=== PATIENT | female | born 1935 | race Caucasian/White ===

== ENCOUNTER 2016-10-04 10:45 | Emergency (ER) | payer MEDICARE, OTHER ==
[2016-10-04] MEDS ORDERED: Sodium Chloride 0.9% 10 ML Syringe FLUSH PRN (12:25)
[2016-10-04] MEDS ORDERED: Ertapenem 1 GM in Sodium Chloride 0.9% 100 ML IV ONE (12:25)
--- NOTE | 2016-10-04 12:44 | EDM.PDOC ---
ED HPI RENAL/ - General Chief Complaint: Genitourinary Problem Stated Complaint: NEEDS IV Time Seen by Provider: 10/04/16 12:15 Source: Reports: Patient, Family, RN notes reviewed History Limitations: Reports: No limitations - History of Present Illness INITIAL COMMENTS - FREE TEXT/NARRATIVE: 81-year-old female presents emergency department today sent from clinic for need for antibiotics, she was recently evaluated in the clinic on September 30 urinalysis at that time was consistent with urinary tract infection she does have a known history of recurrent urinary tract infections sensitivity and culture did come back on October 03 the culture grew out Escherichia coli unfortunately it is resistant to ampicillin, cephalosporins extended spectrum, ciprofloxacin and is sensitive to nitrofurantoin and sensitive ampicillin sensitive resistant to tetracycline and resistant to Bactrim. She does not complain of any specific urinary symptoms she states she has had fevers at home and generally feeling poor as it is ongoing for the last week or so - Related Data Allergies/ADRs: Allergies Allergy/AdvReac Type Severity Reaction Status Date / Time adhesive Allergy Blisters Verified 10/04/16 11:38 cephalexin monohydrate Allergy Diarrhea Verified 10/04/16 11:38 [From Keflex] ciprofloxacin [From Cipro] Allergy Hives Verified 10/04/16 11:38 ciprofloxacin HCl Allergy Hives Verified 10/04/16 11:38 [From Cipro] Penicillins Allergy Hives Verified 10/04/16 11:38 tetracycline [Tetracycline] Allergy Hives Verified 10/04/16 11:38 Home Meds: Home Meds Acetaminophen [Tylenol Extra Strength] 1,000 mg PO Q6H PRN 05/30/14 [History] Albuterol Sulfate [Proair Hfa] 2 puff IH QID PRN 05/30/14 [History] Aspirin [Ecotrin] 81 mg PO DAILY 05/30/14 [History] Cholecalciferol (Vitamin D3) [Vitamin D] 2,000 unit PO DAILY 05/30/14 [History] Gabapentin [Neurontin] 600 mg PO BID 05/30/14 [History] Insulin Detemir [Levemir Flexpen] 21 units SQ BEDTIME 05/30/14 [History] Lansoprazole [Prevacid] 30 mg PO DAILY 05/30/14 [History] Multivitamin [Multi Vitamin Daily] 1 tab PO DAILY 05/30/14 [History] Sertraline [Zoloft] 50 mg PO TID 05/30/14 [History] amLODIPine [Norvasc] 5 mg PO DAILY 05/30/14 [History] atorvaSTATin [Lipitor] 40 mg PO DAILY 05/30/14 [History] fentaNYL [Duragesic] 50 mcg TRDERM Q72H 05/30/14 [History] oxyCODONE 5 mg PO Q4H PRN 05/30/14 [History] tiZANidine [Zanaflex] 4 mg PO TID PRN 05/30/14 [History] Gabapentin [Neurontin] 900 mg PO BEDTIME 01/05/16 [History] Insulin Aspart [Novolog Flexpen] 3 unit SQ BID 01/05/16 [History] Metoprolol Tartrate 1 tab PO DAILY 08/06/16 [History] Past Medical History HEENT History: Reports: Cataract, Other (see below) Other HEENT History: mastiodectomy Cardiovascular History: Reports: Arrhythmia, High cholesterol, Hypertension Respiratory History: Reports: SOB Gastrointestinal History: Reports: Gastritis Genitourinary History: Reports: Chronic renal insuffiency, Other (see below) Other Genitourinary History: stage 3 kidney disease 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: Musculoskeletal History: Reports: Arthritis, Back pain, chronic, Fracture, Fibromyalgia, Osteoarthritis Other Musculoskeletal History: left tibia fx last year Neurological History: Reports: Neuropathy, diabetic, Neuropathy, peripheral Psychiatric History: Reports: Depression Endocrine/Metabolic History: Reports: Diabetes, type II, Osteoporosis Hematologic History: Reports: Blood transfusion(s) Oncologic (Cancer) History: Reports: Squamous cell carcinoma Dermatologic History: Reports: Melanoma - Infectious Disease History Infectious Disease History: Reports: Chicken pox, Measles, Mumps - Past Surgical History HEENT Surgical History: Reports: Tonsillectomy GI Surgical History: Reports: Cholecystectomy, Hernia, abdominal, Hernia repair/ other Female Surgical History: Reports: Hysterectomy Neurological Surgical History: Reports: Laminectomy, Spinal fusion, Other (see below) Other Neurological Surgeries/Procedures: 2 failed back surgeries Musculoskeletal Surgical History: Reports: Hip replacement, Knee replacement, Other (see below) Other Musculoskeletal Surgeries/Procedures:: tumor removed from ankle Oncologic Surgical History: Reports: Other (see below) Other Oncologic Surgeries/Procedures: lesions removed on ankle and nose Social & Family History - Tobacco Use Smoking Status *Q: Never Smoker Second Hand Smoke Exposure: No - Caffeine Use Caffeine Use: Reports: None - Alcohol Use Days Per Week of Alcohol Use: 0 - Recreational Drug Use Recreational Drug Use: No ED ROS GENERAL - Review of Systems Review Of Systems: See Below Constitutional: Reports: fever. Denies: chills HEENT: Reports: No symptoms Respiratory: Reports: no symptoms Cardiovascular: Reports: No symptoms GI/Abdominal: Reports: No symptoms : Reports: no symptoms ED EXAM, RENAL/ - Physical Exam Exam: See Below Exam Limited By: No limitations General Appearance: alert, WD/WN, no apparent distress Respiratory/Chest: lungs clear, normal breath sounds Cardiovascular: regular rate, rhythm, no murmur Course - Vital Signs Last Recorded V/S: Last Vital Signs Temp 99.5 F 10/04/16 11:53 Pulse 80 10/04/16 11:53 Resp 14 10/04/16 11:53 BP 158/70 H 10/04/16 11:53 Pulse Ox 94 L 10/04/16 11:53 - Orders/Labs/Meds Orders: Active Orders 24 hr Category Date Time Status Peripheral IV Care [RC] . DIRECTED Care 10/04/16 12:25 Ordered Ertapenem [INVanz] 1 gm Med 10/04/16 12:25 Ordered Sodium Chloride 0.9% [Normal Saline] 100 ml IV ONETIME Sodium Chloride 0.9% [Saline Flush] Med 10/04/16 12:25 Ordered 10 ml FLUSH ASDIRECTED PRN Peripheral IV Insertion Adult [OM.PC] Urgent Oth 10/04/16 12:25 Ordered Medication Orders Ertapenem 1 gm/ Sodium (Chloride) 100 mls @ 200 mls/hr IV ONETIME ONE Stop: 10/04/16 12:54 Sodium Chloride (Saline Flush) 10 ml FLUSH ASDIRECTED PRN PRN Reason: Keep Vein Open Meds: Medications Generic Name Dose Route Start Last Admin Trade Name Freq PRN Reason Stop Dose Admin Ertapenem 1 gm/ Sodium 100 mls @ 200 mls/hr 10/04/16 12:25 Chloride IV 10/04/16 12:54 ONETIME ONE Sodium Chloride 10 ml 10/04/16 12:25 Saline Flush FLUSH ASDIRECTED PRN Keep Vein Open Departure - Departure Time of Disposition: 12:43 Disposition: Home, Self-Care 01 Condition: good Clinical Impression: UTI, Urinary tract infectious disease Forms: ED Department Discharge Additional Instructions: Please followup with the acute care unit daily for IV antibiotics, call or return to the ED with worsening of symptoms - My Orders Last 24 Hours: My Active Orders 10/04/16 12:25 Peripheral IV Care [RC] . DIRECTED Ertapenem [INVanz] 1 gm Sodium Chloride 0.9% [Normal Saline] 100 ml IV ONETIME Sodium Chloride 0.9% [Saline Flush] 10 ml FLUSH ASDIRECTED PRN Peripheral IV Insertion Adult [OM.PC] Urgent - Assessment/Plan Last 24 Hours: My Active Orders 10/04/16 12:25 Peripheral IV Care [RC] . DIRECTED Ertapenem [INVanz] 1 gm Sodium Chloride 0.9% [Normal Saline] 100 ml IV ONETIME Sodium Chloride 0.9% [Saline Flush] 10 ml FLUSH ASDIRECTED PRN Peripheral IV Insertion Adult [OM.PC] Urgent Plan: Assessment Acuity = acute Site and laterality = complicated urinary tract infection Etiology = Escherichia coli multiple resistance Manifestations = fevers Location of injury = home Lab values = none Plan After consultation with pharmacy elected to start Invanz 1 g daily for 10 days she will receive that antibiotic to the acute care unit or through the emergency department depending on the day Patient was in agreement with the plan all questions were answered, they were instructed to return to the emergency department or call for worsening symptoms. This note was dictated using [employer] voice recognition software please call with any questions.
[2016-10-04 13:21] VITALS: BP 156/68
== END 2016-10-04 13:38 | disposition home or self-care (01) ==
LOC: JP.ED 10:45
DX: N39.0 Urinary tract infection, site not specified (principal); E78.00 Pure hypercholesterolemia, unspecified; N18.3 Chronic kidney disease, stage 3 (moderate); I12.9 Hypertensive chronic kidney disease with stage 1 through stage 4 chronic kidney disease, or unspecified chronic kidney disease; E11.40 Type 2 diabetes mellitus with diabetic neuropathy, unspecified; Z90.49 Acquired absence of other specified parts of digestive tract; Z90.710 Acquired absence of both cervix and uterus; Z98.1 Arthrodesis status; Z96.659 Presence of unspecified artificial knee joint; Z96.649 Presence of unspecified artificial hip joint; Z98.890 Other specified postprocedural states; Z79.4 Long term (current) use of insulin; Z79.82 Long term (current) use of aspirin; Z79.899 Other long term (current) drug therapy; Z88.0 Allergy status to penicillin; Z88.1 Allergy status to other antibiotic agents; Z91.048 Other nonmedicinal substance allergy status
CPT/HCPCS: 96365; 99284; J1335; J7030; J7050; 99283

== ENCOUNTER 2017-03-03 07:25 | Emergency (ER) | payer MEDICARE, OTHER ==
[2017-03-03] MEDS ORDERED: Sodium Chloride 0.9% 1,000 ML IV SCH (08:30)
--- NOTE | 2017-03-03 09:10 | EDM.PDOC ---
[id number] Complaint: VOMITING Time Seen by Provider: 03/03/17 08:35 Source of Information: Reports: Patient, Family History Limitations: Reports: No Limitations - History of Present Illness INITIAL COMMENTS - FREE TEXT/NARRATIVE: 81-year-old female has had persistent nausea and vomiting for the past 4-7 days , a near syncopal episode 2 days ago, and mild upper abdominal discomfort. She was treated with Bactrim DS for a UTI which she finished 4 days ago but symptoms started 3-4 days prior to finishing the antibiotic. Denies fevers or chills, overnight she had persistent dry heaves so her daughter started worrying she was getting dehydrated and brought her in. No diarrhea, no shortness of breath, no fevers or chills. She denies any urinary tract symptoms at this time. Duration: Day(s): (7-10 days) Severity: Moderate Associated Symptoms: Reports: Diaphoresis, Nausea/Vomiting, Syncope (Near syncope 2 days ago). Denies: Fever/Chills, Headaches Abdomen Pain Score (Numeric/FACES): 5 - Related Data Allergies Allergy/AdvReac Type Severity Reaction Status Date / Time adhesive Allergy Blisters Verified 03/03/17 07:53 cephalexin monohydrate Allergy Diarrhea Verified 03/03/17 07:53 [From Keflex] ciprofloxacin [From Cipro] Allergy Hives Verified 03/03/17 07:53 ciprofloxacin HCl Allergy Hives Verified 03/03/17 07:53 [From Cipro] Penicillins Allergy Hives Verified 03/03/17 07:53 tetracycline [Tetracycline] Allergy Hives Verified 03/03/17 07:53 Home Meds: Home Meds Acetaminophen [Tylenol Extra Strength] 1,000 mg PO Q6H PRN 05/30/14 [History] Albuterol Sulfate [Proair Hfa] 2 puff IH QID PRN 05/30/14 [History] Aspirin [Ecotrin] 81 mg PO DAILY 05/30/14 [History] Cholecalciferol (Vitamin D3) [Vitamin D] 2,000 unit PO DAILY 05/30/14 [History] Gabapentin [Neurontin] 600 mg PO BID 05/30/14 [History] Insulin Detemir [Levemir Flexpen] 24 units SQ BEDTIME 05/30/14 [History] Lansoprazole [Prevacid] 30 mg PO DAILY 05/30/14 [History] Multivitamin [Multi Vitamin Daily] 1 tab PO DAILY 05/30/14 [History] Sertraline [Zoloft] 50 mg PO TID 05/30/14 [History] amLODIPine [Norvasc] 5 mg PO DAILY 05/30/14 [History] atorvaSTATin [Lipitor] 40 mg PO DAILY 05/30/14 [History] fentaNYL [Duragesic] 50 mcg TRDERM Q72H 05/30/14 [History] oxyCODONE 5 mg PO Q4H PRN 05/30/14 [History] tiZANidine [Zanaflex] 4 mg PO TID PRN 05/30/14 [History] Gabapentin [Neurontin] 900 mg PO BEDTIME 01/05/16 [History] Insulin Aspart [Novolog Flexpen] 4 unit SQ BID 01/05/16 [History] Metoprolol Tartrate 1 tab PO DAILY 08/06/16 [History] Loratadine 10 mg PO DAILY 10/06/16 [History] Past Medical History HEENT History: Reports: Cataract, Other (See Below) Other HEENT History: mastiodectomy Cardiovascular History: Reports: Arrhythmia, High Cholesterol, Hypertension Respiratory History: Reports: SOB Gastrointestinal History: Reports: Gastritis Genitourinary History: Reports: Chronic Renal Insuffiency, Other (See Below) Other Genitourinary History: recent UTI 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: Musculoskeletal History: Reports: Arthritis, Back Pain, Chronic, Fracture, Fibromyalgia, Osteoarthritis Other Musculoskeletal History: left tibia fx last year Neurological History: Reports: Neuropathy, Diabetic, Neuropathy, Peripheral Psychiatric History: Reports: Depression Endocrine/Metabolic History: Reports: Diabetes, Type II, Osteoporosis Hematologic History: Reports: Blood Transfusion(s) Oncologic (Cancer) History: Reports: Squamous Cell Carcinoma Dermatologic History: Reports: Melanoma - Infectious Disease History Infectious Disease History: Reports: Chicken Pox, Measles, Mumps - Past Surgical History GI Surgical History: Reports: Cholecystectomy, Hernia, Abdominal, Hernia Repair/ Other Neurological Surgical History: Reports: Laminectomy, Spinal Fusion, Other (See Below) Musculoskeletal Surgical History: Reports: Hip Replacement, Knee Replacement, Other (See Below) Oncologic Surgical History: Reports: Other (See Below) Social & Family History - Tobacco Use Smoking Status *Q: Never Smoker Second Hand Smoke Exposure: No - Caffeine Use Caffeine Use: Reports: None - Alcohol Use Days Per Week of Alcohol Use: 0 - Recreational Drug Use Recreational Drug Use: No ED ROS GENERAL - Review of Systems Review Of Systems: See Below Constitutional: Reports: Malaise, Weakness, Decreased Appetite. Denies: Fever, Chills HEENT: Reports: No Symptoms Respiratory: Denies: Shortness of Breath, Cough Cardiovascular: Denies: Chest Pain Endocrine: Reports: Fatigue GI/Abdominal: Reports: Nausea, Vomiting. Denies: Constipation, Diarrhea : Reports: Other (Treated for a recent UTI but no current symptoms) Skin: Denies: Rash Neurological: Denies: Headache ED EXAM, GI/ABD - Physical Exam Exam: See Below Exam Limited By: No Limitations General Appearance: Alert, No Apparent Distress Eyes: Bilateral: Normal Appearance (No jaundice) Respiratory/Chest: No Respiratory Distress, Lungs Clear Cardiovascular: Regular Rate, Rhythm. No: Tachycardia GI/Abdominal Exam: Normal Bowel Sounds, Soft, Non-Tender Extremities: No: Pedal Edema Neurological: Alert, Oriented, No Motor/Sensory Deficits Psychiatric: Normal Affect, Normal Mood Skin Exam: Warm, Dry Course - Vital Signs Last Recorded V/S: Last Vital Signs Temp 96.8 F 03/03/17 10:12 Pulse 77 03/03/17 10:12 Resp 16 03/03/17 10:12 BP 154/73 H 03/03/17 10:12 Pulse Ox 94 L 03/03/17 10:12 - Orders/Labs/Meds Labs: Laboratory Tests 03/03/17 03/03/17 03/03/17 Range/Units 08:36 08:36 08:46 WBC 5.7 (4.5-11.0) K/uL RBC 5.45 (3.30-5.50) M/uL Hgb 15.8 H (12.0-15.0) g/dL Hct 46.3 (36.0-48.0) % MCV 85 (80-98) fL MCH 29 (27-31) pg MCHC 34 (32-36) % Plt Count 248 (150-400) K/uL Neut % (Auto) 55 (36-66) % Lymph % (Auto) 36 (24-44) % [place]ke % (Auto) 6 (2-6) % Eos % (Auto) 2 (2-4) % Baso % (Auto) 1 (0-1) % Sodium 140 (140-148) mmol/L Potassium 3.9 (3.6-5.2) mmol/L Chloride 102 (100-108) mmol/L Carbon Dioxide 31 (21-32) mmol/L Anion Gap 7.3 (5.0-14.0) mmol/L BUN 21 H (7-18) mg/dL Creatinine 1.4 H (0.6-1.0) mg/dL Est Cr Clr Drug Dosing 24.93 mL/min Estimated GFR (MDRD) 36 L (>60) Glucose 218 H (74-106) mg/dL Calcium 10.3 H (8.5-10.1) mg/dL Total Bilirubin 0.5 (0.2-1.0) mg/dL AST 41 H (15-37) U/L ALT 36 (12-78) U/L Alkaline Phosphatase 117 H (46-116) U/L Troponin I < 0.017 (0.000-0.056) ng/mL Total Protein 9.6 H (6.4-8.2) g/dL Albumin 4.3 (3.4-5.0) g/dL Globulin 5.3 H (2.3-3.5) g/dL Albumin/Globulin Ratio 0.8 L (1.2-2.2) Amylase 41 (25-115) U/L Lipase 122 (73-393) U/L Urine Color Yellow Urine Appearance Clear Urine pH 6.5 (4.5-8.0) Ur Specific [place] 1.010 (1.008-1.030) Urine Protein 500 H (NEGATIVE) mg/dL Urine Glucose (UA) Normal (NEGATIVE) mg/dL Urine Ketones Negative (NEGATIVE) mg/dL Urine Occult Blood Moderate (NEGATIVE) Urine Nitrite Negative (NEGATIVE) Urine Bilirubin Negative (NEGATIVE) Urine Urobilinogen Normal (NORMAL) mg/dL Ur Leukocyte Esterase Negative (NEGATIVE) Urine RBC 0-5 (0-5) Urine WBC Not seen (0-5) Ur Epithelial Cells Not seen Amorphous Sediment Few Urine Bacteria Not seen Urine Mucus Not seen Meds: Medications Discontinued Medications Generic Name Dose Route Start Last Admin Trade Name Freq PRN Reason Stop Dose Admin Sodium Chloride 1,000 mls @ 1,000 mls/hr 03/03/17 08:30 03/03/17 08:45 Normal Saline IV 1,000 mls/hr ASDIRECTED OBDULIA Administration Ondansetron HCl 4 mg 03/03/17 09:27 03/03/17 09:32 Zofran IVPUSH 03/03/17 09:28 4 mg ONETIME ONE Administration - Re-Assessments/Exams Free Text/Narrative Re-Assessment/Exam: 03/03/17 09:00 Patient will be hydrated with 1 L of normal saline, a catheter specimen UA was obtained and also a CBC, CMP, amylase and lipase. A troponin will also be drawn 03/03/17 09:55 Patient was given 4 mg of IV Zofran and a liter of fluid and felt better. Labs were reassuring, the catheter UA was negative other than a small amount of proteinuria. She was discharged with 5 additional doses of sublingual Zofran and will return if not improving satisfactorily. Departure - Departure Time of Disposition: 10:15 Disposition: Home, Self-Care 01 Condition: Good Clinical Impression: Nausea and vomiting in adult, Dehydration - Discharge Information Instructions: Dehydration, Adult, [id number] Referrals: Adela Dietz NP [Primary Care Provider] - Forms: ED Department Discharge Care Plan Goals: Advance fluids and diet as tolerated. Use Zofran as needed for nausea and vomiting if it develops and return anytime if worsening or concerns. Consider recheck in 3-4 days if not improving satisfactorily.
[2017-03-03] MEDS ORDERED: Ondansetron 4 MG/2 ML SDV IVPUSH ONE (09:27)
[2017-03-03 10:13] VITALS: BP 154/73
== END 2017-03-03 10:15 | disposition home or self-care (01) ==
LOC: JP.ED 07:25
DX: E86.0 Dehydration (principal); I12.9 Hypertensive chronic kidney disease with stage 1 through stage 4 chronic kidney disease, or unspecified chronic kidney disease; N18.9 Chronic kidney disease, unspecified; E11.42 Type 2 diabetes mellitus with diabetic polyneuropathy; E78.00 Pure hypercholesterolemia, unspecified; M19.90 Unspecified osteoarthritis, unspecified site; F32.9 Major depressive disorder, single episode, unspecified; Z85.828 Personal history of other malignant neoplasm of skin; Z90.49 Acquired absence of other specified parts of digestive tract; Z98.890 Other specified postprocedural states; Z96.659 Presence of unspecified artificial knee joint; Z96.649 Presence of unspecified artificial hip joint; Z79.82 Long term (current) use of aspirin; Z79.4 Long term (current) use of insulin; Z79.899 Other long term (current) drug therapy; Z87.440 Personal history of urinary (tract) infections; Z88.0 Allergy status to penicillin; Z88.1 Allergy status to other antibiotic agents; Z88.8 Allergy status to other drugs, medicaments and biological substances
CPT/HCPCS: 36415; 80053; 81001; 82150; 83690; 84484; 85025; 96361; 96374; 99284; J2405; J7040; 99283

== ENCOUNTER 2017-08-15 07:35 | Day surgery (SDC) | payer MEDICARE, BC ==
[2017-08-15] MEDS ORDERED: fentaNYL 100 MCG/2 ML SDV ONE (08:36)
[2017-08-15] MEDS ORDERED: Propofol 200 MG/20 ML SDV ONE (08:36)
[2017-08-15] MEDS ORDERED: Lactated Ringers 1,000 ML IV SCH (08:45)
[2017-08-15 11:04] VITALS: BP 179/89
--- NOTE | 2017-08-16 08:15 | OR ---
DATE OF PROCEDURE: 08/15/2017 PREOPERATIVE DIAGNOSIS: Nausea, gastroesophageal reflux disease. POSTOPERATIVE DIAGNOSIS: 4 cm hiatal hernia, gastroesophageal reflux disease, mild gastritis, nausea. PROCEDURES: Esophagogastroduodenoscopy with biopsy of gastroesophageal junction. Biopsy of stomach for CLOtest and for pathology to look for Helicobacter pylori. ANESTHESIA: IV anesthesia with monitored anesthesia care. INDICATION: This 81-year-old white female is referred for upper endoscopy because of nausea and reflux. She has never had this study done. I counseled her for the procedure including risks and alternatives, and she gave her informed consent to proceed. DESCRIPTION OF PROCEDURE: The patient was placed in the left lateral decubitus position. IV anesthesia was administered by the Anesthesia Service. Time-out was held. The flexible video Olympus upper endoscope was passed through her mouth, down her esophagus, and into her stomach. The scope was easily passed through the pylorus into the duodenal region and its 3rd portion. The scope was then slowly withdrawn examining the mucosa throughout. The duodenal mucosa appeared unremarkable. The scope was brought back up through the pylorus into the antrum. The antrum had a fine erythema suggestive of mild gastritis. The scope was retroflexed. The proximal stomach had a fine erythema also. The scope was straightened. We obtained gastric biopsies for CLOtest and for pathology to look for Helicobacter pylori. The scope was brought up through the GE junction. There was about a 4 cm hiatal hernia present. The Z-line was not straight consistent with gastroesophageal reflux disease. We obtained multiple, totalling 6 biopsies of the gastroesophageal junction. The scope was then brought proximally through the remainder of the esophagus, which otherwise appeared unremarkable and it was removed. She tolerated the procedure well. Graham Gipson MD /[id number]
== END 2017-08-15 10:40 | disposition home or self-care (01) ==
LOC: JP.SDS 07:35
PROVIDERS: ATTEND Surgery
DX: K21.0 Gastro-esophageal reflux disease with esophagitis (principal); K44.9 Diaphragmatic hernia without obstruction or gangrene; E11.22 Type 2 diabetes mellitus with diabetic chronic kidney disease; I12.9 Hypertensive chronic kidney disease with stage 1 through stage 4 chronic kidney disease, or unspecified chronic kidney disease; N18.9 Chronic kidney disease, unspecified; I25.10 Atherosclerotic heart disease of native coronary artery without angina pectoris; K21.9 Gastro-esophageal reflux disease without esophagitis; F41.9 Anxiety disorder, unspecified; F32.9 Major depressive disorder, single episode, unspecified; Z88.0 Allergy status to penicillin; Z88.1 Allergy status to other antibiotic agents; Z88.2 Allergy status to sulfonamides; Z88.8 Allergy status to other drugs, medicaments and biological substances; Z91.09 Other allergy status, other than to drugs and biological substances; Z79.899 Other long term (current) drug therapy
CPT/HCPCS: 43239; 87081; J2704; J3010; J7120; 88305

== ENCOUNTER 2017-11-09 14:59 | Emergency (ER) | payer MEDICARE, BC ==
[2017-11-09 15:22] VITALS: BP 111/63
--- NOTE | 2017-11-09 15:43 | EDM.PDOC ---
ED HPI GENERAL MEDICAL PROBLEM - General Chief Complaint: Upper Extremity Injury/Pain Stated Complaint: FALL - L WRIST INJURY Time Seen by Provider: 11/09/17 15:41 Source of Information: Reports: Patient, Family History Limitations: Reports: No Limitations - History of Present Illness INITIAL COMMENTS - FREE TEXT/NARRATIVE: pt fell forward and she landed on her left wriat. She has sig deformity of the wrist. Onset: Today Duration: Hour(s): Location: Reports: Upper Extremity, Left Associated Symptoms: Reports: No Other Symptoms - Related Data Allergies Allergy/AdvReac Type Severity Reaction Status Date / Time adhesive Allergy Blisters Verified 11/09/17 15:04 ciprofloxacin [From Cipro] Allergy Hives Verified 11/09/17 15:04 ciprofloxacin HCl Allergy Hives Verified 11/09/17 15:04 [From Cipro] lisinopril Allergy Cannot Verified 11/09/17 15:04 Remember Penicillins Allergy Hives Verified 11/09/17 15:04 sulfamethoxazole Allergy Cannot Verified 11/09/17 15:04 [From Bactrim] Remember tetracycline [Tetracycline] Allergy Hives Verified 11/09/17 15:04 trimethoprim [From Bactrim] Allergy Cannot Verified 11/09/17 15:04 Remember valsartan [From Diovan] Allergy Cannot Verified 11/09/17 15:04 Remember cephalexin monohydrate AdvReac Diarrhea Verified 11/09/17 15:04 [From Keflex] Home Meds: Home Meds Acetaminophen [Tylenol Extra Strength] 1,000 mg PO Q6H PRN 05/30/14 [History] Albuterol Sulfate [Proair Hfa] 2 puff IH QID PRN 05/30/14 [History] Aspirin [Ecotrin] 81 mg PO DAILY 05/30/14 [History] Cholecalciferol (Vitamin D3) [Vitamin D] 2,000 unit PO DAILY 05/30/14 [History] Gabapentin [Neurontin] 600 mg PO BID 05/30/14 [History] Insulin Detemir [Levemir Flexpen] 30 units SQ BEDTIME 05/30/14 [History] Multivitamin [Multi Vitamin Daily] 1 tab PO DAILY 05/30/14 [History] Sertraline [Zoloft] 50 mg PO TID 05/30/14 [History] amLODIPine [Norvasc] 5 mg PO DAILY 05/30/14 [History] atorvaSTATin [Lipitor] 40 mg PO DAILY 05/30/14 [History] fentaNYL [Duragesic] 50 mcg TRDERM Q72H 05/30/14 [History] oxyCODONE 5 mg PO Q4H PRN 05/30/14 [History] tiZANidine [Zanaflex] 4 mg PO TID PRN 05/30/14 [History] Gabapentin [Neurontin] 900 mg PO BEDTIME 01/05/16 [History] Insulin Aspart [Novolog Flexpen] 5 unit SQ ASDIRECTED 01/05/16 [History] Metoprolol Tartrate 1 tab PO DAILY 08/06/16 [History] Loratadine 10 mg PO DAILY PRN 10/06/16 [History] Furosemide [Lasix] 20 mg PO BID 08/12/17 [History] Omeprazole Magnesium [Prilosec Otc] 20 mg PO DAILY 08/12/17 [History] Past Medical History HEENT History: Reports: Cataract, Other (See Below) Other HEENT History: mastiodectomy Cardiovascular History: Reports: Arrhythmia, High Cholesterol, Hypertension Respiratory History: Reports: SOB Gastrointestinal History: Reports: Gastritis Genitourinary History: Reports: Chronic Renal Insuffiency, Other (See Below) Other Genitourinary History: recent UTI 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 TECHNOLOGIST 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: Reports: Musculoskeletal History: Reports: Arthritis, Back Pain, Chronic, Fracture, Fibromyalgia, Osteoarthritis Other Musculoskeletal History: left tibia fx last year Neurological History: Reports: Neuropathy, Diabetic, Neuropathy, Peripheral Psychiatric History: Reports: Depression Endocrine/Metabolic History: Reports: Diabetes, Type II, Osteoporosis Hematologic History: Reports: Blood Transfusion(s) Oncologic (Cancer) History: Reports: Squamous Cell Carcinoma Dermatologic History: Reports: Melanoma - Infectious Disease History Infectious Disease History: Reports: Chicken Pox, Measles, Mumps - Past Surgical History HEENT Surgical History: Reports: Tonsillectomy GI Surgical History: Reports: Cholecystectomy, Hernia, Abdominal, Hernia Repair/ Other Neurological Surgical History: Reports: Laminectomy, Spinal Fusion, Other (See Below) Musculoskeletal Surgical History: Reports: Hip Replacement, Knee Replacement, Other (See Below) Oncologic Surgical History: Reports: Other (See Below) Social & Family History - Tobacco Use Smoking Status *Q: Never Smoker Second Hand Smoke Exposure: No - Caffeine Use Caffeine Use: Reports: Other Other Caffeine Use: no doze daily - Alcohol Use Days Per Week of Alcohol Use: 0 - Recreational Drug Use Recreational Drug Use: No Review of Systems - Review of Systems Review Of Systems: See Below Constitutional: Reports: No Symptoms Eyes: Reports: No Symptoms Ears: Reports: No Symptoms Nose: Reports: No Symptoms Mouth/Throat: Reports: No Symptoms Respiratory: Reports: No Symptoms Cardiovascular: Reports: No Symptoms GI/Abdominal: Reports: No Symptoms Genitourinary: Reports: No Symptoms Musculoskeletal: Reports: Other (pt fell and landed on her left wrist. She now has pain and deformity. ) ED EXAM, GENERAL - Physical Exam Exam: See Below Free Text/Narrative:: pt fell and landed on the left wrist. She has a obvious deformity and swelling with pain. Exam Limited By: No Limitations General Appearance: Alert, Anxious, Moderate Distress Ears: Normal TMs Nose: Normal Inspection Throat/Mouth: Normal Inspection Head: Atraumatic Neck: Normal Inspection Respiratory/Chest: No Respiratory Distress GI/Abdominal: Soft, Non-Tender Extremities: Other (left wrist is deformed. She has good pulses and normal sensation. Xray reveals fracture of both bones with marked displacement. ) Course - Vital Signs Last Recorded V/S: Last Vital Signs Temp 36.2 C 11/09/17 15:20 Pulse 71 11/09/17 15:20 Resp 16 11/09/17 15:20 BP 111/63 11/09/17 15:20 Pulse Ox 91 L 11/09/17 15:20 - Orders/Labs/Meds Orders: Active Orders 24 hr Category Date Time Status Wrist 2V Lt [CR] Stat Exams 11/09/17 16:36 Taken Wrist Comp Min 3V Lt [CR] Stat Exams 11/09/17 15:19 Taken Meds: Medications Discontinued Medications Generic Name Dose Route Start Last Admin Trade Name Freq PRN Reason Stop Dose Admin Hydromorphone HCl 0.5 mg 11/09/17 15:52 11/09/17 16:05 Dilaudid IM 11/09/17 15:53 0.5 mg ONETIME ONE Administration Lidocaine HCl 20 ml 11/09/17 15:52 11/09/17 16:05 Xylocaine 1% INJECT 11/09/17 15:53 20 ml ONETIME ONE Administration - Re-Assessments/Exams Free Text/Narrative Re-Assessment/Exam: 11/09/17 17:01 pt was given dilaudid .5 im and the hematoma was injected with lidocaine. good anesthesia was obtained. reduction was attempted and better alighment was obtained. Departure - Departure Time of Disposition: 17:03 Disposition: Home, Self-Care 01 Condition: Fair Clinical Impression: Fracture of radius and ulna - Discharge Information Referrals: Usman Issa, WEBLOGIC ADMINISTRATOR [Primary Care Provider] - Forms: ED Department Discharge Care Plan Goals: pt is to be seen at 1015 tomorrow.--Dr Niranjan Wilkerson, percocet 5/325 q6h prn for pain #8, elevate sling, cool pack to the left wrist. - My Orders Last 24 Hours: My Active Orders 11/09/17 15:19 Wrist Comp Min 3V Lt [CR] Stat 11/09/17 16:36 Wrist 2V Lt [CR] Stat - Assessment/Plan Last 24 Hours: My Active Orders 11/09/17 15:19 Wrist Comp Min 3V Lt [CR] Stat 11/09/17 16:36 Wrist 2V Lt [CR] Stat
[2017-11-09] MEDS ORDERED: Lidocaine 1% 20 ML MDV INJECT ONE (15:52)
[2017-11-09] MEDS ORDERED: HYDROmorphone 0.5 MG/0.5 ML Syringe IM ONE (15:52)
--- NOTE | 2017-11-10 08:31 | CR ---
Wrist Comp Min 3V Lt HISTORY: swollen left wrist. FINDINGS: There is an acute, mildly comminuted transverse fracture distal left radius with dorsal dis placement and angulation. No other fracture is identified. Carpal bone alignment is satisfactory. The re are mild degenerative changes at the wrist. Soft tissue swelling is noted. IMPRESSION: Acute, mildly comminuted transverse fracture distal left radius with dorsal displacement and angulation.
--- NOTE | 2017-11-10 08:46 | CR ---
Wrist 2V Lt HISTORY: post reduction FINDINGS: There is been interval reduction of the mildly comminuted transverse fracture distal left r adius. Fracture may involve the mid articular surface. Position and alignment are much improved with very mild residual dorsal displacement and angulation. Fiberglass splint is noted. Remainder of the w rist is stable. IMPRESSION: Position and alignment of distal radius fracture are much improved compared with the funmilayo ier exam. Fiberglas splint is noted
== END 2017-11-09 17:30 | disposition home or self-care (01) ==
LOC: JP.ED 14:59
DX: S52.502A Unspecified fracture of the lower end of left radius, initial encounter for closed fracture (principal); I10 Essential (primary) hypertension; E78.00 Pure hypercholesterolemia, unspecified; E11.9 Type 2 diabetes mellitus without complications; Z88.1 Allergy status to other antibiotic agents; Z88.0 Allergy status to penicillin; Z88.8 Allergy status to other drugs, medicaments and biological substances; Z79.82 Long term (current) use of aspirin; Z79.4 Long term (current) use of insulin; Z79.899 Other long term (current) drug therapy; Z91.09 Other allergy status, other than to drugs and biological substances; W19.XXXA Unspecified fall, initial encounter
CPT/HCPCS: 25505; 25605; 73100; 73110; 96374; 99283; 99284; J1170

== ENCOUNTER 2017-11-16 09:34 | Day surgery (SDC) | payer MEDICARE, BC ==
[~2017-11-16 09:34] MED LIST: Bupivacaine 0.5%/EPINEPHrine 1:200,000 50 ML MDV ONE; Povidone-Iodine 10% Soln 118.25 ML Bottle ONE
[2017-11-16] MEDS ORDERED: Ondansetron 4 MG/2 ML SDV ONE (10:08)
[2017-11-16] MEDS ORDERED: Succinylcholine 200 MG/10 ML MDV ONE (10:08)
[2017-11-16] MEDS ORDERED: fentaNYL 250 MCG/5 ML SDV ONE (10:08)
[2017-11-16] MEDS ORDERED: Rocuronium 50 MG/5 ML Vial ONE (10:08)
[2017-11-16] MEDS ORDERED: Neostigmine Methylsulfate 1 MG/ML 5 ML Syringe ONE (10:08)
[2017-11-16] MEDS ORDERED: Dexamethasone 4 MG/ML SDV ONE (10:08)
[2017-11-16] MEDS ORDERED: Propofol 200 MG/20 ML SDV ONE (10:08)
[2017-11-16] MEDS ORDERED: Glycopyrrolate 0.2 MG/ML 5 ML MDV ONE (10:08)
[2017-11-16] MEDS ORDERED: Lactated Ringers 1,000 ML IV SCH (10:30)
[2017-11-16] MEDS ORDERED: Clindamycin Phosphate 900 MG in Sodium Chloride 0.9% 100 ML IV ONE (10:45)
[2017-11-16] MEDS ORDERED: Ondansetron 4 MG/2 ML SDV IVPUSH ONE (12:55)
[2017-11-16] MEDS ORDERED: fentaNYL 100 MCG/2 ML SDV IVPUSH ONE ×2 (12:57→13:42)
[2017-11-16] MEDS ORDERED: hydrOXYzine HCl 100 MG/2 ML SDV IM ONE (13:17)
[2017-11-16] MEDS ORDERED: Gelatin Sponge,Absorbable Pwd 1 GM Pkt ONE (14:00)
[2017-11-16] MEDS ORDERED: Acetaminophen/HYDROcodone 325-5 MG Tab PO PRN (14:16)
[2017-11-16] MEDS ORDERED: Ketorolac 30 MG/ML SDV IM ONE (14:26)
[2017-11-16 15:10] VITALS: BP 169/77
--- NOTE | 2017-11-16 23:16 | OR ---
DATE OF PROCEDURE: 11/16/2017 PREOPERATIVE DIAGNOSIS: Left distal radius fracture, closed. POSTOPERATIVE DIAGNOSIS: Left distal radius fracture, closed. PROCEDURE PERFORMED: 1. Open reduction and internal fixation of left distal radius fracture with intra- articular comminution. 2. Application of short-arm splint. ANESTHESIA: General endotracheal intubation. FLUIDS: Lactated Ringer solution. ESTIMATED BLOOD LOSS: 50 mL. COMPLICATIONS: None. SPECIMEN: None. DISCHARGE DISPOSITION: Stable to PACU. HISTORY AND INDICATIONS FOR THE PROCEDURE: The patient was seen preoperatively in the clinic. She had fallen sustaining the above-mentioned fracture. Preoperative imaging confirmed the above-mentioned diagnosis. She had been in a splint. Risks and benefits of the procedure were explained to the patient. Informed consent was obtained. DETAILS OF PROCEDURE: The patient was seen preoperatively by myself and the anesthesia staff in the preop holding area where the operative site was marked. She was brought to the operative suite by the anesthesia staff where general anesthesia was administered. A well- padded tourniquet was placed on the left arm. The left upper extremity was then prepped and draped in sterile manner. Time-out was called identifying the correct patient, correct procedure, the correct site, and antibiotics had begun within appropriate period of time. The left upper extremity was then exsanguinated. Tourniquet was raised to 250 mmHg and taken down after just prior to closure at 23 minutes. An incision was made over the flexor carpi radialis tendon from the radiocarpal joint approximately 10 cm. The FCR tendon was identified and then retracted laterally. I then went through the dorsal aspect of the tendon sheath, and then encountered the pronator. I then used an elevator to peel off any soft tissue from the volar portion of the radius. I then reduced it and identified that there were very small fragments distally. I then worked on my reduction and confirmed that I had a good reduction on fluoroscopy. I then placed my plate and drilled my oblong cortical hole. After this had been completed, I then confirmed good placement and then placed a 12 mm screw to hold it in position. I then drilled on my proximal holes and placed smooth pegs and then on my distal holes placed partially-threaded screws. I then confirmed that these were placed in appropriate position on AP and lateral. I then drilled two more cortical screws and filled them with 14 mm screws. I then took my final films. I then let down the tourniquet. The patient did have quite a bit of skin bleeders which took a great deal of time to take care of. I then used compression and then applied Gel-Foam powder as well. After this had been completed, I then determined that we had adequate hemostasis. I then irrigated copiously with saline and then closed subcutaneous tissues with 2-0 Vicryl followed by closure with 3-0 nylon in a horizontal mattress manner followed by Betadine- soaked Adaptic, Webril, and a short-arm splint. Niranjan Wilkerson DO /[id number]
== END 2017-11-16 15:20 | disposition home or self-care (01) ==
LOC: JP.SDS 09:34
PROVIDERS: ATTEND Orthopaedic Surgery
DX: S52.572A Other intraarticular fracture of lower end of left radius, initial encounter for closed fracture (principal); I12.9 Hypertensive chronic kidney disease with stage 1 through stage 4 chronic kidney disease, or unspecified chronic kidney disease; E11.22 Type 2 diabetes mellitus with diabetic chronic kidney disease; N18.9 Chronic kidney disease, unspecified; E11.42 Type 2 diabetes mellitus with diabetic polyneuropathy; Z88.1 Allergy status to other antibiotic agents; Z88.0 Allergy status to penicillin; Z88.2 Allergy status to sulfonamides; Z91.09 Other allergy status, other than to drugs and biological substances; Z79.82 Long term (current) use of aspirin; Z79.4 Long term (current) use of insulin; Z79.899 Other long term (current) drug therapy; X58.XXXA Exposure to other specified factors, initial encounter
CPT/HCPCS: 25608; 76000; A9270; C1713; J0330; J1100; J1885; J2405; J2704; J2710; J3010; J3410; J7030; J7120; S0077

== ENCOUNTER 2019-05-19 09:36 | Inpatient (IN) | payer MEDICARE, BC ==
[2019-05-19] MEDS ORDERED: Sodium Chloride 0.9% 10 ML Syringe FLUSH PRN (10:28)
[2019-05-19] MEDS ORDERED: Lactated Ringers 1,000 ML IV SCH (10:30)
--- NOTE | 2019-05-19 10:37 | EDM.PDOC ---
ED HPI GENERAL MEDICAL PROBLEM - General Chief Complaint: Fever Stated Complaint: POSSIBLE STROKE Time Seen by Provider: 05/19/19 10:17 Source of Information: Reports: Patient, Family, RN Notes Reviewed History Limitations: Reports: No Limitations - History of Present Illness INITIAL COMMENTS - FREE TEXT/NARRATIVE: 83-year-old female presents emergency department today complaint of fever and weakness, she has been ill for about 5 days had an episode approximately 5 days ago where she fell out of bed and laid on the floor overnight, complains of shortness of breath and burning with urination, family members are present they believe she may of had a stroke 5 days ago she had slurred speech at that time however she has no difficulty with speech now and no focal neurologic deficit at this time. Treatments SOAP MAKER: Reports: Other (see below) Other Treatments SOAP MAKER: Cold and flu pills prior to coming. Back Pain Score (Numeric/FACES): 8 - Related Data Allergies Allergy/AdvReac Type Severity Reaction Status Date / Time adhesive Allergy Blisters Verified 05/19/19 09:59 ciprofloxacin [From Cipro] Allergy Hives Verified 05/19/19 09:59 ciprofloxacin HCl Allergy Hives Verified 05/19/19 09:59 [From Cipro] lisinopril Allergy Cannot Verified 05/19/19 09:59 Remember Penicillins Allergy Hives Verified 05/19/19 09:59 sulfamethoxazole Allergy Cannot Verified 05/19/19 09:59 [From Bactrim] Remember tetracycline [Tetracycline] Allergy Hives Verified 05/19/19 09:59 trimethoprim [From Bactrim] Allergy Cannot Verified 05/19/19 09:59 Remember valsartan [From Diovan] Allergy Cannot Verified 05/19/19 09:59 Remember cephalexin monohydrate AdvReac Diarrhea Verified 05/19/19 09:59 [From Keflex] lactose AdvReac Abdominal Verified 05/19/19 09:59 Cramps Home Meds: Home Meds Acetaminophen [Tylenol Extra Strength] 1,000 mg PO Q6H PRN 05/30/14 [History] Albuterol Sulfate [Proair Hfa] 2 puff IH QID PRN 05/30/14 [History] Aspirin [Ecotrin EC] 81 mg PO DAILY 05/30/14 [History] Cholecalciferol (Vitamin D3) [Vitamin D] 2,000 unit PO DAILY 05/30/14 [History] Gabapentin [Neurontin] 600 mg PO BID 05/30/14 [History] Insulin Detemir [Levemir Flexpen] 30 units SQ BEDTIME 05/30/14 [History] Multivitamin [Multi Vitamin Daily] 1 tab PO DAILY 05/30/14 [History] Sertraline [Zoloft] 50 mg PO TID 05/30/14 [History] atorvaSTATin [Lipitor] 40 mg PO DAILY 05/30/14 [History] fentaNYL [Duragesic] 50 mcg TRDERM Q72H 05/30/14 [History] oxyCODONE 5 mg PO Q4H PRN 05/30/14 [History] tiZANidine [Zanaflex] 4 mg PO TID PRN 05/30/14 [History] Gabapentin [Neurontin] 900 mg PO BEDTIME 01/05/16 [History] Insulin Aspart [Novolog Flexpen] 5 unit SQ ASDIRECTED 01/05/16 [History] Metoprolol Tartrate 1 tab PO DAILY 08/06/16 [History] Furosemide [Lasix] 20 mg PO BID 08/12/17 [History] Omeprazole Magnesium [Prilosec Otc] 20 mg PO DAILY 08/12/17 [History] Past Medical History HEENT History: Reports: Cataract, Other (See Below) Other HEENT History: mastiodectomy Cardiovascular History: Reports: Arrhythmia, Blood Clots/VTE/DVT, High Cholesterol, Hypertension Gastrointestinal History: Reports: Gastritis Genitourinary History: Reports: Chronic Renal Insuffiency, Other (See Below) Other Genitourinary History: recent UTI 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 left wrist FX Neurological History: Reports: Neuropathy, Diabetic, Neuropathy, Peripheral Psychiatric History: Reports: Depression Endocrine/Metabolic History: Reports: Diabetes, Type II, Osteoporosis Hematologic History: Reports: Blood Transfusion(s) Oncologic (Cancer) History: Reports: Squamous Cell Carcinoma Dermatologic History: Reports: Melanoma - Infectious Disease History Infectious Disease History: Reports: Chicken Pox, Measles, MRSA, Mumps - Past Surgical History HEENT Surgical History: Reports: Tonsillectomy GI Surgical History: Reports: Cholecystectomy, Hernia, Abdominal, Hernia Repair/ Other Neurological Surgical History: Reports: Laminectomy, Spinal Fusion Musculoskeletal Surgical History: Reports: Hip Replacement Oncologic Surgical History: Reports: Other (See Below) Social & Family History - Tobacco Use Smoking Status *Q: Never Smoker - Caffeine Use Caffeine Use: Reports: Other Other Caffeine Use: no doze daily Caffeine Use Comment: no doze - Recreational Drug Use Recreational Drug Use: No ED ROS GENERAL - Review of Systems Review Of Systems: See Below Constitutional: Reports: Fever, Weakness HEENT: Reports: No Symptoms Respiratory: Reports: Shortness of Breath Cardiovascular: Reports: No Symptoms GI/Abdominal: Denies: Abdominal Pain, Constipation, Diarrhea, Nausea, Vomiting : Reports: Dysuria Skin: Reports: No Symptoms Neurological: Reports: Confusion, Trouble Speaking (5 days ago) ED EXAM, SEPSIS - Physical Exam Exam: See Below Text/Narrative:: General: Elderly female, not in any distress, alert and oriented x3 HEENT: head is atraumatic normocephalic, eyes pupils equal round reactive to light, sclera clear no conjunctivitis appreciated. Ears tympanic membranes clear and galvez landmarks and light reflex are present bilaterally canals are clear. Nose no septal deviation, nares are clear, no blood present. Mouth mucosa is moist and pink no erythema or exudate noted in soft palate, tongue is midline uvula is midline, dentition is intact. Neck: Supple no thyromegaly no tracheal deviation. Nodes: Cervical nodes subclavicular nodes nontender no palpable lymphadenopathy noted. Lungs: clear to auscultation bilaterally with symmetrical respirations, no adventitious noise appreciated. CV: Regular rate and rhythm S1 and S2 appreciated no murmurs rubs or gallops noted. Chest does have CVA tenderness on the right side Abdomen: Soft, nontender, no palpable masses or organomegaly appreciated, no distention no guarding bowel sounds are present, . Neuro: GCS 15 Skin: Warm and dry, intact Extremities: No lower extremity edema appreciated, pedal pulse is +2. Exam Limited By: No Limitations General Appearance: Alert, WD/WN, No Apparent Distress Course - Vital Signs Last Recorded V/S: Last Vital Signs Temp 102.8 F H 05/19/19 11:40 Pulse 100 05/19/19 12:06 Resp 23 H 05/19/19 12:06 BP 122/62 05/19/19 12:06 Pulse Ox 95 05/19/19 12:06 - Orders/Labs/Meds Orders: Active Orders 24 hr Category Date Time Status EKG Documentation Completion [RC] ASDIRECTED Care 05/19/19 11:37 Active Peripheral IV Care [RC] . DIRECTED Care 05/19/19 10:29 Active Vital Signs [RC] Q1H Care 05/19/19 10:27 Active CULTURE BLOOD [BC] Urgent Lab 05/19/19 10:35 Received CULTURE BLOOD [BC] Urgent Lab 05/19/19 10:42 Received CULTURE URINE [RM] Urgent Lab 05/19/19 11:09 Received Lactated Ringers [Ringers, Lactated] 1,000 ml Med 05/19/19 10:30 Active IV ASDIRECTED Sodium Chloride 0.9% [Saline Flush] Med 05/19/19 10:28 Active 10 ml FLUSH ASDIRECTED PRN Blood Culture x2 Reflex Set [OM.PC] Urgent Oth 05/19/19 10:27 Ordered Peripheral IV Insertion Adult [OM.PC] Urgent Oth 05/19/19 10:28 Ordered EKG 12 Lead [EK] Stat Ther 05/19/19 11:37 Ordered Medication Orders Lactated Ringer's (Ringers, Lactated) 1,000 mls @ 999 mls/hr IV ASDIRECTED OBDULIA Last Admin: 05/19/19 10:46 Dose: 999 mls/hr Sodium Chloride (Saline Flush) 10 ml FLUSH ASDIRECTED PRN PRN Reason: Keep Vein Open Last Admin: 05/19/19 10:47 Dose: 10 ml Labs: Laboratory Tests 05/19/19 05/19/19 05/19/19 Range/Units 10:34 10:35 10:35 WBC 7.4 (4.5-11.0) K/uL RBC 4.76 (3.30-5.50) M/uL Hgb 13.7 (12.0-15.0) g/dL Hct 41.7 (36.0-48.0) % MCV 88 (80-98) fL MCH 29 (27-31) pg MCHC 33 (32-36) % Plt Count 203 (150-400) K/uL Neut % (Auto) 94 H (36-66) % Lymph % (Auto) 4 L (24-44) % [place] % (Auto) 2 (2-6) % Eos % (Auto) 0 L (2-4) % Baso % (Auto) 0 (0-1) % Sodium 141 (140-148) mmol/L Potassium 2.6 L* (3.6-5.2) mmol/L Chloride 102 (100-108) mmol/L Carbon Dioxide 23 (21-32) mmol/L Anion Gap 18.6 H (5.0-14.0) mmol/L BUN 23 H (7-18) mg/dL Creatinine 1.5 H (0.6-1.0) mg/dL Est Cr Clr Drug Dosing 21.44 mL/min Estimated GFR (MDRD) 33 L (>60) BUN/Creatinine Ratio Not Reportable Glucose 162 H (74-106) mg/dL Lactic Acid (0.4-2.0) mmol/L Calcium 9.5 (8.5-10.1) mg/dL Total Bilirubin 0.7 (0.2-1.0) mg/dL AST 55 H (15-37) U/L ALT 42 (12-78) U/L Alkaline Phosphatase 129 H (46-116) U/L Creatine Kinase 303 H (26-192) U/L Troponin I (0.000-0.056) ng/mL C-Reactive Protein 6.76 H (0.0-0.3) mg/dL NT-Pro-B Natriuret Pep (5-450) pg/mL Total Protein 8.3 H (6.4-8.2) g/dL Albumin 3.8 (3.4-5.0) g/dL Globulin 4.5 H (2.3-3.5) g/dL Albumin/Globulin Ratio 0.8 L (1.2-2.2) Procalcitonin 8.27 H* ng/mL Urine Color (YELLOW) Urine Appearance (CLEAR) Urine pH (5.0-8.0) Ur Specific [place] (1.008-1.030) Urine Protein (NEGATIVE) mg/dL Urine Glucose (UA) (NEGATIVE) mg/dL Urine Ketones (NEGATIVE) mg/dL Urine Occult Blood (NEGATIVE) Urine Nitrite (NEGATIVE) Urine Bilirubin (NEGATIVE) Urine Urobilinogen (0.2-1.0) EU/dL Ur Leukocyte Esterase (NEGATIVE) Urine RBC (0-5) Urine WBC (0-5) Ur Epithelial Cells Amorphous Sediment Urine Bacteria Urine Mucus 05/19/19 05/19/19 05/19/19 Range/Units 10:35 10:35 10:58 WBC (4.5-11.0) K/uL RBC (3.30-5.50) M/uL Hgb (12.0-15.0) g/dL Hct (36.0-48.0) % MCV (80-98) fL MCH (27-31) pg MCHC (32-36) % Plt Count (150-400) K/uL Neut % (Auto) (36-66) % Lymph % (Auto) (24-44) % [place] % (Auto) (2-6) % Eos % (Auto) (2-4) % Baso % (Auto) (0-1) % Sodium (140-148) mmol/L Potassium (3.6-5.2) mmol/L Chloride (100-108) mmol/L Carbon Dioxide (21-32) mmol/L Anion Gap (5.0-14.0) mmol/L BUN (7-18) mg/dL Creatinine (0.6-1.0) mg/dL Est Cr Clr Drug Dosing mL/min Estimated GFR (MDRD) (>60) BUN/Creatinine Ratio Glucose (74-106) mg/dL Lactic Acid 2.4 H (0.4-2.0) mmol/L Calcium (8.5-10.1) mg/dL Total Bilirubin (0.2-1.0) mg/dL AST (15-37) U/L ALT (12-78) U/L Alkaline Phosphatase (46-116) U/L Creatine Kinase (26-192) U/L Troponin I 1.004 H* (0.000-0.056) ng/mL C-Reactive Protein (0.0-0.3) mg/dL NT-Pro-B Natriuret Pep (5-450) pg/mL Total Protein (6.4-8.2) g/dL Albumin (3.4-5.0) g/dL Globulin (2.3-3.5) g/dL Albumin/Globulin Ratio (1.2-2.2) Procalcitonin ng/mL Urine Color Yellow (YELLOW) Urine Appearance Cloudy A (CLEAR) Urine pH 6.0 (5.0-8.0) Ur Specific [place] 1.025 (1.008-1.030) Urine Protein >=300 H (NEGATIVE) mg/dL Urine Glucose (UA) Negative (NEGATIVE) mg/dL Urine Ketones Negative (NEGATIVE) mg/dL Urine Occult Blood Moderate H (NEGATIVE) Urine Nitrite Positive H (NEGATIVE) Urine Bilirubin Negative (NEGATIVE) Urine Urobilinogen 0.2 (0.2-1.0) EU/dL Ur Leukocyte Esterase Negative (NEGATIVE) Urine RBC 5-10 H (0-5) Urine WBC 0-5 (0-5) Ur Epithelial Cells Rare Amorphous Sediment Not seen Urine Bacteria Many Urine Mucus Not seen 05/19/19 Range/Units 11:37 WBC (4.5-11.0) K/uL RBC (3.30-5.50) M/uL Hgb (12.0-15.0) g/dL Hct (36.0-48.0) % MCV (80-98) fL MCH (27-31) pg MCHC (32-36) % Plt Count (150-400) K/uL Neut % (Auto) (36-66) % Lymph % (Auto) (24-44) % [place] % (Auto) (2-6) % Eos % (Auto) (2-4) % Baso % (Auto) (0-1) % Sodium (140-148) mmol/L Potassium (3.6-5.2) mmol/L Chloride (100-108) mmol/L Carbon Dioxide (21-32) mmol/L Anion Gap (5.0-14.0) mmol/L BUN (7-18) mg/dL Creatinine (0.6-1.0) mg/dL Est Cr Clr Drug Dosing mL/min Estimated GFR (MDRD) (>60) BUN/Creatinine Ratio Glucose (74-106) mg/dL Lactic Acid (0.4-2.0) mmol/L Calcium (8.5-10.1) mg/dL Total Bilirubin (0.2-1.0) mg/dL AST (15-37) U/L ALT (12-78) U/L Alkaline Phosphatase (46-116) U/L Creatine Kinase (26-192) U/L Troponin I (0.000-0.056) ng/mL C-Reactive Protein (0.0-0.3) mg/dL NT-Pro-B Natriuret Pep 845 H (5-450) pg/mL Total Protein (6.4-8.2) g/dL Albumin (3.4-5.0) g/dL Globulin (2.3-3.5) g/dL Albumin/Globulin Ratio (1.2-2.2) Procalcitonin ng/mL Urine Color (YELLOW) Urine Appearance (CLEAR) Urine pH (5.0-8.0) Ur Specific [place] (1.008-1.030) Urine Protein (NEGATIVE) mg/dL Urine Glucose (UA) (NEGATIVE) mg/dL Urine Ketones (NEGATIVE) mg/dL Urine Occult Blood (NEGATIVE) Urine Nitrite (NEGATIVE) Urine Bilirubin (NEGATIVE) Urine Urobilinogen (0.2-1.0) EU/dL Ur Leukocyte Esterase (NEGATIVE) Urine RBC (0-5) Urine WBC (0-5) Ur Epithelial Cells Amorphous Sediment Urine Bacteria Urine Mucus Meds: Medications Generic Name Dose Route Start Last Admin Trade Name Freq PRN Reason Stop Dose Admin Lactated Ringer's 1,000 mls @ 999 mls/hr 05/19/19 10:30 05/19/19 10:46 Ringers, Lactated IV 999 mls/hr ASDIRECTED OBDULIA Administration Sodium Chloride 10 ml 05/19/19 10:28 05/19/19 10:47 Saline Flush FLUSH 10 ml ASDIRECTED PRN Administration Keep Vein Open Discontinued Medications Generic Name Dose Route Start Last Admin Trade Name Freq PRN Reason Stop Dose Admin Ceftriaxone Sodium 1 gm/ 50 mls @ 100 mls/hr 05/19/19 11:15 05/19/19 11:33 Sodium Chloride IV 05/19/19 11:44 100 mls/hr ONETIME ONE Administration Potassium Chloride 40 meq 05/19/19 11:38 05/19/19 11:54 Klor-Con M20 PO 05/19/19 11:39 40 meq ONETIME ONE Administration Departure - Departure Time of Disposition: 13:05 Disposition: Admitted As Inpatient 66 Condition: Fair Clinical Impression: UTI (urinary tract infection) Qualifiers: Urinary tract infection type: acute cystitis Hematuria presence: without hematuria Qualified Code(s): N30.00 - Acute cystitis without hematuria - Discharge Information Referrals: Usman Issa WIRE TAPER [Primary Care Provider] - Forms: ED Department Discharge - My Orders Last 24 Hours: My Active Orders 05/19/19 10:27 Vital Signs [RC] Q1H Blood Culture x2 Reflex Set [OM.PC] Urgent 05/19/19 10:28 Sodium Chloride 0.9% [Saline Flush] 10 ml FLUSH ASDIRECTED PRN Peripheral IV Insertion Adult [OM.PC] Urgent 05/19/19 10:29 Peripheral IV Care [RC] . DIRECTED 05/19/19 10:30 Lactated Ringers [Ringers, Lactated] 1,000 ml IV ASDIRECTED 05/19/19 10:35 CULTURE BLOOD [BC] Urgent 05/19/19 10:42 CULTURE BLOOD [BC] Urgent 05/19/19 11:09 CULTURE URINE [RM] Urgent 05/19/19 11:37 EKG Documentation Completion [RC] ASDIRECTED EKG 12 Lead [EK] Stat - Assessment/Plan Last 24 Hours: My Active Orders 05/19/19 10:27 Vital Signs [RC] Q1H Blood Culture x2 Reflex Set [OM.PC] Urgent 05/19/19 10:28 Sodium Chloride 0.9% [Saline Flush] 10 ml FLUSH ASDIRECTED PRN Peripheral IV Insertion Adult [OM.PC] Urgent 05/19/19 10:29 Peripheral IV Care [RC] . DIRECTED 05/19/19 10:30 Lactated Ringers [Ringers, Lactated] 1,000 ml IV ASDIRECTED 05/19/19 10:35 CULTURE BLOOD [BC] Urgent 05/19/19 10:42 CULTURE BLOOD [BC] Urgent 05/19/19 11:09 CULTURE URINE [RM] Urgent 05/19/19 11:37 EKG Documentation Completion [RC] ASDIRECTED EKG 12 Lead [EK] Stat Plan: Assessment Acuity = acute Site and laterality = urinary tract infection complicated patient with known history of diabetes mellitus type II, recent fall , hypertension dyslipidemia Etiology = probably related to recent fall with bacterial cause Manifestations = fever Location of injury = Home Lab values = potassium low at 2.6 consistent hypokalemia creatinine elevated 1.5 consistent with acute renal failure stage G IIIB lactic acid elevated 2.4 consistent lactic acidosis AST elevated 55 consistent elevated liver enzymes CK elevated at 303 and troponin is elevated 1.004 unclear significance CRP elevated 6.76 BNP elevated 845 consistent with fluid overload type pattern, Pro calcitonin elevated 8.77 urinalysis positive for nitrates and many bacteria chest x-ray shows no acute process EKG does demonstrate Q waves in V1,2 and 3 which are new from prior EKG Plan Called discussed case with hospitalist on-call at 1250 kindly agreed to come and evaluate the patient in the emergency department for admission, blood cultures and urine cultures are pending antibiotics of Rocephin has been initiated did discuss with the patient's concern for cardiac event possibly a couple days ago when she fell and referral to cardiology for further evaluation she declined would like to proceed to comfort cares only she is DNR/DNI, prefers just to have her urinary tract infection treated as well as her potassium and then would like to be discharged home family is in agreement with the plan This note was dictated using [employer] voice recognition software please call with any questions on syntax or grammar.
[2019-05-19] MEDS ORDERED: cefTRIAXone 1 GM in Sodium Chloride 0.9% 50 ML IV ONE ×2 (11:06→11:15)
--- NOTE | 2019-05-19 11:36 | CRLCR ---
INDICATION: Fever and shortness of breath TECHNIQUE: Chest 1 view. COMPARISON: None FINDINGS: Cardiovascular and mediastinum: Heart size and vasculature are normal in caliber and appearance. Mediastinum is within normal limits. Lungs and pleural space: Elevation right hemidiaphragm. Lungs are clear. No sign of infiltrate or mass. No sign of pleural effusion. No pneumothorax. Bones and soft tissues: Fixation hardware lumbar spine. Scoliosis thoracolumbar spine. IMPRESSION: Unremarkable chest. Dictated by Jameel Robertson MD @ 05/19/2019 11:35:34 AM Dictated by: Jameel Robertson MD @ 05/19/2019 11:35:38 (Electronically Signed)
[2019-05-19] MEDS ORDERED: Potassium Chloride 20 MEQ Tab.ER PO ONE (11:38)
[2019-05-19] MEDS ORDERED: Clopidogrel 75 MG Tab PO ONE (13:41)
[2019-05-19] MEDS ORDERED: Sodium Chloride 0.9% 1,000 ML IV SCH (13:45)
--- NOTE | 2019-05-19 14:06 | PCM.HP.2 ---
H&P History of Present Illness - General Date of Service: 05/19/19 Admit Problem/Dx: Admission Diagnosis/Problem Admission Diagnosis/Problem Acute cystitis without hematuria Source of Information: Patient, Family, Provider History Limitations: Reports: No Limitations - History of Present Illness Initial Comments - Free Text/Narative: CC: I'm weak HPI: Brie presents to the emergency room today with weakness and fevers. Difficulties started on Tuesday, 5 days ago. During the afternoon she felt like she had a hole in the middle of her body and that her legs were very weak. Around that time per daughter noted she was slurring her speech. The patient felt tired so she took a nap. When she woke up her speech was a little better but still slurred. As the evening progressed her speech improved. The next day seemed a little better but then that night she had a fall and spent the entire night on the floor. Since that time she has had a progressive weakness. She has not had additional difficulties with speech since that time. Weakness is generalized. No complaints of pain other than her chronic back pain which is stable. She does not feel short of breath. She has not had any chest pain. Over the past couple of days she has developed subjective fevers with episodes of being hot and sweaty as well as cold and shaky. Appetite has been decreased and she has not been eating very well. She has had some mild nausea. She has not noticed a change in her bowel habits but has had some urinary urgency. Workup in the emergency room suggested sepsis with a urinary tract infection as well as a suspected non-ST elevation myocardial infarction with a troponin level of 1. She also had significant hypokalemia. Transfer to a tertiary care center was recommended for cardiology evaluation. The patient and her daughter both felt that aggressive and invasive intervention was not appropriate based on her previously expressed wishes. They were interested and admission for medical management of the myocardial infarction as well as management of her infection but did not want to transfer for aggressive intervention. She will be admitted to the intensive care unit for further management. Back Pain Score (Numeric/FACES): 8 - Related Data Allergies/Adverse Reactions: Allergies Allergy/AdvReac Type Severity Reaction Status Date / Time adhesive Allergy Blisters Verified 05/19/19 09:59 ciprofloxacin [From Cipro] Allergy Hives Verified 05/19/19 09:59 ciprofloxacin HCl Allergy Hives Verified 05/19/19 09:59 [From Cipro] lisinopril Allergy Cannot Verified 05/19/19 09:59 Remember Penicillins Allergy Hives Verified 05/19/19 09:59 sulfamethoxazole Allergy Cannot Verified 05/19/19 09:59 [From Bactrim] Remember tetracycline [Tetracycline] Allergy Hives Verified 05/19/19 09:59 trimethoprim [From Bactrim] Allergy Cannot Verified 05/19/19 09:59 Remember valsartan [From Diovan] Allergy Cannot Verified 05/19/19 09:59 Remember cephalexin monohydrate AdvReac Diarrhea Verified 05/19/19 09:59 [From Keflex] lactose AdvReac Abdominal Verified 05/19/19 09:59 Cramps Home Medications: Home Meds Acetaminophen [Tylenol Extra Strength] 1,000 mg PO Q6H PRN 05/30/14 [History] Albuterol Sulfate [Proair Hfa] 2 puff IH QID PRN 05/30/14 [History] Aspirin [Ecotrin EC] 81 mg PO DAILY 05/30/14 [History] Cholecalciferol (Vitamin D3) [Vitamin D] 2,000 unit PO DAILY 05/30/14 [History] Gabapentin [Neurontin] 600 mg PO BID 05/30/14 [History] Insulin Detemir [Levemir Flexpen] 30 units SQ BEDTIME 05/30/14 [History] Multivitamin [Multi Vitamin Daily] 1 tab PO DAILY 05/30/14 [History] Sertraline [Zoloft] 50 mg PO TID 05/30/14 [History] atorvaSTATin [Lipitor] 40 mg PO DAILY 05/30/14 [History] fentaNYL [Duragesic] 50 mcg TRDERM Q72H 05/30/14 [History] oxyCODONE 5 mg PO Q4H PRN 05/30/14 [History] tiZANidine [Zanaflex] 4 mg PO TID PRN 05/30/14 [History] Gabapentin [Neurontin] 900 mg PO BEDTIME 01/05/16 [History] Insulin Aspart [Novolog Flexpen] 5 unit SQ ASDIRECTED 01/05/16 [History] Furosemide [Lasix] 20 mg PO BID 08/12/17 [History] Omeprazole Magnesium [Prilosec Otc] 20 mg PO DAILY 08/12/17 [History] Metoprolol Succinate 50 mg PO DAILY 05/19/19 [History] Past Medical History HEENT History: Reports: Cataract, Other (See Below) Other HEENT History: mastiodectomy Cardiovascular History: Reports: Arrhythmia, Blood Clots/VTE/DVT, High Cholesterol, Hypertension Respiratory History: Reports: SOB Gastrointestinal History: Reports: Gastritis Genitourinary History: Reports: Chronic Renal Insuffiency, Other (See Below) Other Genitourinary History: recent UTI 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 left wrist FX Neurological History: Reports: Neuropathy, Diabetic, Neuropathy, Peripheral Psychiatric History: Reports: Depression Endocrine/Metabolic History: Reports: Diabetes, Type II, Osteoporosis Hematologic History: Reports: Blood Transfusion(s) Oncologic (Cancer) History: Reports: Squamous Cell Carcinoma Dermatologic History: Reports: Melanoma - Infectious Disease History Infectious Disease History: Reports: Chicken Pox, Measles, MRSA, Mumps - Past Surgical History HEENT Surgical History: Reports: Tonsillectomy GI Surgical History: Reports: Cholecystectomy, Hernia, Abdominal, Hernia Repair/ Other Neurological Surgical History: Reports: Laminectomy, Spinal Fusion Musculoskeletal Surgical History: Reports: Hip Replacement Oncologic Surgical History: Reports: Other (See Below) Social & Family History - Family History Cardiac: Denies: CAD - Tobacco Use Smoking Status *Q: Never Smoker - Caffeine Use Caffeine Use: Reports: Other Other Caffeine Use: no doze daily Caffeine Use Comment: no doze - Alcohol Use Alcohol Use History: No - Recreational Drug Use Recreational Drug Use: No H&P Review of Systems - Review of Systems: Review Of Systems: See Below Free Text/Narrative: A complete 12 point review of systems was obtained. Pertinent positives and negatives are noted in the history of present illness. All other systems were reviewed and were negative except as noted. Exam - Exam Exam: See Below - Vital Signs Vital Signs: Last Vital Signs Temp 38.6 C H 05/19/19 13:56 Pulse 93 05/19/19 13:08 Resp 15 05/19/19 13:08 BP 141/58 H 05/19/19 13:08 Pulse Ox 93 L 05/19/19 13:08 Weight: 74.028 kg - Exam Quality Assessment: Supplemental Oxygen General: Alert, Oriented, Cooperative. No: Mild Distress HEENT: Conjunctiva Clear, Pupils Equal. No: Mucosa Moist & Dustin (dry), Scleral Icterus Neck: Supple, Trachea Midline. No: Lymphadenopathy Lungs: Clear to Auscultation, Normal Respiratory Effort Cardiovascular: Regular Rhythm, Tachycardia. No: Systolic Murmur GI/Abdominal Exam: Normal Bowel Sounds, Soft, No Distention, Tender (left side of abdomen ). No: Guarding Back Exam: Normal Inspection. No: Full Range of Motion Extremities: Pedal Edema (very mild bilateral edema ). No: Increased Warmth Peripheral Pulses: 2+: Dorsalis Pedis (L), Dorsalis Pedis (R) Skin: Warm, Dry Neuro Extensive - Mental Status: Alert, Oriented x3, Nl Response to Commands Neuro Extensive - Motor, Sensory, Reflexes: No: Dysarthria, Abnormal Motor, Tremor Psychiatric: Alert, Normal Affect - Patient Data Lab Results Last 24 hrs: Laboratory Results - last 24 hr 05/19/19 05/19/19 05/19/19 Range/Units 10:34 10:35 10:35 WBC 7.4 (4.5-11.0) K/uL RBC 4.76 (3.30-5.50) M/uL Hgb 13.7 (12.0-15.0) g/dL Hct 41.7 (36.0-48.0) % MCV 88 (80-98) fL MCH 29 (27-31) pg MCHC 33 (32-36) % Plt Count 203 (150-400) K/uL Neut % (Auto) 94 H (36-66) % Lymph % (Auto) 4 L (24-44) % [place] % (Auto) 2 (2-6) % Eos % (Auto) 0 L (2-4) % Baso % (Auto) 0 (0-1) % Sodium 141 (140-148) mmol/L Potassium 2.6 L* (3.6-5.2) mmol/L Chloride 102 (100-108) mmol/L Carbon Dioxide 23 (21-32) mmol/L Anion Gap 18.6 H (5.0-14.0) mmol/L BUN 23 H (7-18) mg/dL Creatinine 1.5 H (0.6-1.0) mg/dL Est Cr Clr Drug Dosing 21.44 mL/min Estimated GFR (MDRD) 33 L (>60) BUN/Creatinine Ratio Not Reportable Glucose 162 H (74-106) mg/dL Lactic Acid (0.4-2.0) mmol/L Calcium 9.5 (8.5-10.1) mg/dL Total Bilirubin 0.7 (0.2-1.0) mg/dL AST 55 H (15-37) U/L ALT 42 (12-78) U/L Alkaline Phosphatase 129 H (46-116) U/L Creatine Kinase 303 H (26-192) U/L Troponin I (0.000-0.056) ng/mL C-Reactive Protein 6.76 H (0.0-0.3) mg/dL NT-Pro-B Natriuret Pep (5-450) pg/mL Total Protein 8.3 H (6.4-8.2) g/dL Albumin 3.8 (3.4-5.0) g/dL Globulin 4.5 H (2.3-3.5) g/dL Albumin/Globulin Ratio 0.8 L (1.2-2.2) Procalcitonin 8.27 H* ng/mL Urine Color (YELLOW) Urine Appearance (CLEAR) Urine pH (5.0-8.0) Ur Specific [place] (1.008-1.030) Urine Protein (NEGATIVE) mg/dL Urine Glucose (UA) (NEGATIVE) mg/dL Urine Ketones (NEGATIVE) mg/dL Urine Occult Blood (NEGATIVE) Urine Nitrite (NEGATIVE) Urine Bilirubin (NEGATIVE) Urine Urobilinogen (0.2-1.0) EU/dL Ur Leukocyte Esterase (NEGATIVE) Urine RBC (0-5) Urine WBC (0-5) Ur Epithelial Cells Amorphous Sediment Urine Bacteria Urine Mucus 05/19/19 05/19/19 05/19/19 Range/Units 10:35 10:35 10:58 WBC (4.5-11.0) K/uL RBC (3.30-5.50) M/uL Hgb (12.0-15.0) g/dL Hct (36.0-48.0) % MCV (80-98) fL MCH (27-31) pg MCHC (32-36) % Plt Count (150-400) K/uL Neut % (Auto) (36-66) % Lymph % (Auto) (24-44) % [place] % (Auto) (2-6) % Eos % (Auto) (2-4) % Baso % (Auto) (0-1) % Sodium (140-148) mmol/L Potassium (3.6-5.2) mmol/L Chloride (100-108) mmol/L Carbon Dioxide (21-32) mmol/L Anion Gap (5.0-14.0) mmol/L BUN (7-18) mg/dL Creatinine (0.6-1.0) mg/dL Est Cr Clr Drug Dosing mL/min Estimated GFR (MDRD) (>60) BUN/Creatinine Ratio Glucose (74-106) mg/dL Lactic Acid 2.4 H (0.4-2.0) mmol/L Calcium (8.5-10.1) mg/dL Total Bilirubin (0.2-1.0) mg/dL AST (15-37) U/L ALT (12-78) U/L Alkaline Phosphatase (46-116) U/L Creatine Kinase (26-192) U/L Troponin I 1.004 H* (0.000-0.056) ng/mL C-Reactive Protein (0.0-0.3) mg/dL NT-Pro-B Natriuret Pep (5-450) pg/mL Total Protein (6.4-8.2) g/dL Albumin (3.4-5.0) g/dL Globulin (2.3-3.5) g/dL Albumin/Globulin Ratio (1.2-2.2) Procalcitonin ng/mL Urine Color Yellow (YELLOW) Urine Appearance Cloudy A (CLEAR) Urine pH 6.0 (5.0-8.0) Ur Specific [place] 1.025 (1.008-1.030) Urine Protein >=300 H (NEGATIVE) mg/dL Urine Glucose (UA) Negative (NEGATIVE) mg/dL Urine Ketones Negative (NEGATIVE) mg/dL Urine Occult Blood Moderate H (NEGATIVE) Urine Nitrite Positive H (NEGATIVE) Urine Bilirubin Negative (NEGATIVE) Urine Urobilinogen 0.2 (0.2-1.0) EU/dL Ur Leukocyte Esterase Negative (NEGATIVE) Urine RBC 5-10 H (0-5) Urine WBC 0-5 (0-5) Ur Epithelial Cells Rare Amorphous Sediment Not seen Urine Bacteria Many Urine Mucus Not seen 05/19/19 Range/Units 11:37 WBC (4.5-11.0) K/uL RBC (3.30-5.50) M/uL Hgb (12.0-15.0) g/dL Hct (36.0-48.0) % MCV (80-98) fL MCH (27-31) pg MCHC (32-36) % Plt Count (150-400) K/uL Neut % (Auto) (36-66) % Lymph % (Auto) (24-44) % [place] % (Auto) (2-6) % Eos % (Auto) (2-4) % Baso % (Auto) (0-1) % Sodium (140-148) mmol/L Potassium (3.6-5.2) mmol/L Chloride (100-108) mmol/L Carbon Dioxide (21-32) mmol/L Anion Gap (5.0-14.0) mmol/L BUN (7-18) mg/dL Creatinine (0.6-1.0) mg/dL Est Cr Clr Drug Dosing mL/min Estimated GFR (MDRD) (>60) BUN/Creatinine Ratio Glucose (74-106) mg/dL Lactic Acid (0.4-2.0) mmol/L Calcium (8.5-10.1) mg/dL Total Bilirubin (0.2-1.0) mg/dL AST (15-37) U/L ALT (12-78) U/L Alkaline Phosphatase (46-116) U/L Creatine Kinase (26-192) U/L Troponin I (0.000-0.056) ng/mL C-Reactive Protein (0.0-0.3) mg/dL NT-Pro-B Natriuret Pep 845 H (5-450) pg/mL Total Protein (6.4-8.2) g/dL Albumin (3.4-5.0) g/dL Globulin (2.3-3.5) g/dL Albumin/Globulin Ratio (1.2-2.2) Procalcitonin ng/mL Urine Color (YELLOW) Urine Appearance (CLEAR) Urine pH (5.0-8.0) Ur Specific [place] (1.008-1.030) Urine Protein (NEGATIVE) mg/dL Urine Glucose (UA) (NEGATIVE) mg/dL Urine Ketones (NEGATIVE) mg/dL Urine Occult Blood (NEGATIVE) Urine Nitrite (NEGATIVE) Urine Bilirubin (NEGATIVE) Urine Urobilinogen (0.2-1.0) EU/dL Ur Leukocyte Esterase (NEGATIVE) Urine RBC (0-5) Urine WBC (0-5) Ur Epithelial Cells Amorphous Sediment Urine Bacteria Urine Mucus Result Diagrams: 05/19/19 10:35 05/19/19 10:35 Dioni Results Last 24 hrs: Microbiology 05/19/19 10:50 Influenza Type A Antigen Screen - Final Nasal Aspirate, Unspecified NEGATIVE INFLUENZA A VIRUS AG REFERENCE RANGE: NEGATIVE Influenza Type B Antigen Screen - Final NEGATIVE INFLUENZA B VIRUS AG REFERENCE RANGE: NEGATIVE Imaging Impressions Last 24 hrs: CXR - images personally reviewed - lungs are clear, no mass, infiltrate or effusion. Heart size is normal. EKG INTERPRETATION EKG Date: 05/19/19 Rhythm: NSR Rate (Beats/Min): 93 Moss: LAD-Left Moss Deviation P-Wave: Present QRS: Normal ST-T: Normal Comparison: Change From Previous EKG (loss of R wave in V1-V3) *Q Meaningful Use (ADM) - VTE Risk Assess *Q Each Risk Factor Represents 1 Point: Obesity ( BMI > 25 kg/m2), Sepsis Total Score 1 Point Risk Factors: 2 Each Risk Factor Represents 2 Points: None Total Score 2 Point Risk Factors: 0 Each Risk Factor Represents 3 Points: Age 75 Years or Greater Total Score 3 Point Risk Factors: 3 Each Risk Factor Represents 5 Points: None Total Score 5 Point Risk Factors: 0 Venous Thromboembolism Risk Factor Score *Q: 5 - Problem List (1) Acute cystitis without hematuria SNOMED Code(s): 37362942 ICD Code: N30.00 - ACUTE CYSTITIS WITHOUT HEMATURIA Status: Acute Current Visit: Yes (2) Sepsis SNOMED Code(s): 40118042 ICD Code: A41.9 - SEPSIS, UNSPECIFIED ORGANISM Status: Acute Current Visit: Yes Qualifiers: Sepsis type: sepsis due to unspecified organism Sepsis acute organ dysfunction status: with acute organ dysfunction Severe sepsis acute organ dysfunction type: acute respiratory failure Acute respiratory failure type: with hypoxia Severe sepsis shock status: without septic shock Qualified Code (s): A41.9 - Sepsis, unspecified organism; R65.20 - Severe sepsis without septic shock; J96.01 - Acute respiratory failure with hypoxia (3) NSTEMI (non-ST elevated myocardial infarction) SNOMED Code(s): 67447077 ICD Code: I21.4 - NON-ST ELEVATION (NSTEMI) MYOCARDIAL INFARCTION Status: Acute Current Visit: Yes (4) Hypokalemia SNOMED Code(s): 80194270 ICD Code: E87.6 - HYPOKALEMIA Status: Acute Current Visit: Yes (5) CKD (chronic kidney disease), stage III SNOMED Code(s): 146890515 ICD Code: N18.3 - CHRONIC KIDNEY DISEASE, STAGE 3 (MODERATE) Status: Chronic Current Visit: Yes (6) Chronic back pain SNOMED Code(s): 597170114 ICD Code: M54.9 - DORSALGIA, UNSPECIFIED; G89.29 - OTHER CHRONIC PAIN Status: Chronic Current Visit: Yes Qualifiers: Back pain location: low back pain Back pain laterality: bilateral Sciatica presence: unspecified whether sciatica present Qualified Code(s): M54.5 - Low back pain; G89.29 - Other chronic pain Problem List Initiated/Reviewed/Updated: Yes Orders Last 24hrs: Active Orders 24 hr Category Date Time Status Patient Status Manage Transfer [TRANSFER] Routine ADT 05/19/19 13:43 Ordered EKG Documentation Completion [RC] ASDIRECTED Care 05/19/19 11:37 Active Peripheral IV Care [RC] . DIRECTED Care 05/19/19 10:29 Active Vital Signs [RC] Q1H Care 05/19/19 10:27 Active CULTURE BLOOD [BC] Urgent Lab 05/19/19 10:35 Received CULTURE BLOOD [BC] Urgent Lab 05/19/19 10:42 Received CULTURE URINE [RM] Urgent Lab 05/19/19 11:09 Received Lactated Ringers [Ringers, Lactated] 1,000 ml Med 05/19/19 10:30 Active IV ASDIRECTED Sodium Chloride 0.9% [Normal Saline] 1,000 ml Med 05/19/19 13:45 Active IV ASDIRECTED Sodium Chloride 0.9% [Saline Flush] Med 05/19/19 10:28 Active 10 ml FLUSH ASDIRECTED PRN Blood Culture x2 Reflex Set [OM.PC] Urgent Oth 05/19/19 10:27 Ordered Peripheral IV Insertion Adult [OM.PC] Urgent Oth 05/19/19 10:28 Ordered Resuscitation Status Routine Resus Stat 05/19/19 13:50 Ordered EKG 12 Lead [EK] Stat Ther 05/19/19 11:37 Ordered Medication Orders Lactated Ringer's (Ringers, Lactated) 1,000 mls @ 999 mls/hr IV ASDIRECTED OBD[facility]IA Last Admin: 05/19/19 10:46 Dose: 999 mls/hr Sodium Chloride (Normal Saline) 1,000 mls @ 100 mls/hr IV ASDIRECTED [facility] Last Admin: 05/19/19 13:51 Dose: 100 mls/hr Sodium Chloride (Saline Flush) 10 ml FLUSH ASDIRECTED PRN PRN Reason: Keep Vein Open Last Admin: 05/19/19 10:47 Dose: 10 ml Assessment/Plan Comment:: ASSESSMENT AND PLAN - Acute cystitis without hematuria and with sepsis - febrile with evidence for sepsis including tachycardia, lactic acidosis and potentially elevated troponin. Doing a little better with IV fluids. She has received broad-spectrum antibiotics and cultures were obtained prior. -Continue ceftriaxone -Additional fluids -Repeat lactic acid -Follow-up cultures Non-ST segment myocardial infarction - significant elevation of troponin at 1 but no chest pain. This may be related to sepsis combined with stage III kidney disease. Patient not interested in transfer for aggressive intervention. She is interested in medical management of a potential heart attack. EKG did not suggest acute ischemic infarct. -Clopidogrel 1 now and then daily -Heparin infusion 24-48 hours -Serial troponin levels -Titrate medical management as indicated Hypokalemia - Profound hypokalemia likely related to recent chronic diarrhea as well as poor intake. Stage III chronic kidney disease - Creatinine slightly higher than baseline but will hopefully improve with management of sepsis. Chronic back pain - Stable at this time. -Continue fentanyl patch and as needed oxycodone Maintenance issues - - DVT prophylaxis - Heparin - GI prophylaxis - PPI - Nutrition - Low sodium - Toney catheter - Not indicated CODE STATUS - DNR/DNI Admission justification - This patient will be admitted for inpatient services and is medically appropriate meeting medical necessity for inpatient admission as outlined in my documentation. I reasonably expect the patient will require inpatient services that span a period time over 2 midnights. I reasonably expect this patient to be discharged or transferred within 96 hours [facility]. Disposition - I would anticipate discharge home, potentially with home care after the hospital stay Primary care physician - Usman Coker M.D. - Mortality Measure Prognosis:: Poor
[2019-05-19] MEDS ORDERED: Albuterol 0.083% 2.5 MG/3 ML Neb Soln NEB PRN (14:44)
[2019-05-19] MEDS ORDERED: LORazepam 2 MG/ML SDV IVPUSH PRN (14:44)
[2019-05-19] MEDS ORDERED: Ondansetron 4 MG/2 ML SDV IV PRN (14:44)
[2019-05-19] MEDS ORDERED: fentaNYL 100 MCG/HR Transdermal Patch TRDERM SCH (14:44)
[2019-05-19] MEDS ORDERED: Melatonin 3 MG Tab PO PRN (14:44)
[2019-05-19] MEDS ORDERED: Ondansetron 4 MG Tab.DIS PO PRN (14:44)
[2019-05-19] MEDS ORDERED: tiZANidine 4 MG Tab PO PRN (14:44)
[2019-05-19] MEDS ORDERED: Heparin Sodium 5,000 Units/ML Vial IVPUSH ONE (15:00)
[2019-05-19] MEDS: Acetaminophen 500 MG Tab PO SCH ×2 (15:30→21:00)
[2019-05-19] MEDS ORDERED: Potassium Chloride 20 MEQ, Lidocaine 1% 2 ML in Sodium Chloride 0.9% 100 ML IV ONE (15:30)
[2019-05-19] MEDS: Gabapentin 300 MG Cap PO SCH ×2 (15:47→21:00)
--- NOTE | 2019-05-19 15:50 | CRLCT ---
INDICATION: Dysarthria TECHNIQUE: CT head without contrast. COMPARISON: None available FINDINGS: There is mild generalized cerebral atrophy, most pronounced within the frontal lobes bilaterally. The galvez-white matter junction is distinct. Negative for acute intracranial hemorrhage, extra-axial fluid collection or midline shift. There is mild atherosclerotic calcification of the cavernous portions of the internal carotid arteries bilaterally. The basal cisterns are intact. The bony calvarium is intact. There is minimal mucosal thickening of the ethmoid sinuses. The remainder of the visualized paranasal sinuses are clear. The mastoid air cells are well pneumatized. IMPRESSION: 1. Negative for acute intracranial abnormality by noncontrast CT technique. 2. Cerebral atrophy, most pronounced within the frontal lobes bilaterally. Dictated by Belkis García MD @ 05/19/2019 3:48:10 PM Please note that all CT scans at this facility use dose modulation, iterative reconstruction, and/or weight-based dosing when appropriate to reduce radiation dose to as low as reasonably achievable. Dictated by: Belkis García MD @ 05/19/2019 15:48:26 (Electronically Signed)
[2019-05-19] MEDS: fentaNYL 50 MCG/HR Transdermal Patch TRDERM SCH (15:59)
[2019-05-19] MEDS ORDERED: INSULIN ASPART 5 UNIT SQ SCH (16:00)
[2019-05-19] MEDS: Heparin Sodium/D5W 25,000 UNITS/500 ML BAG IV SCH (16:34)
[2019-05-19] MEDS: VERIFY FENT PATCH TOP SCH ×2 (16:41→21:01)
[2019-05-19] MEDS: Insulin Lispro 100 Unit/ML 3 ML KwikPen SUBCUT SCH (17:23)
[2019-05-19] MEDS: Lactobacillus Rhamnosus GG (Probiotic) Cap PO SCH (21:00)
[2019-05-19] MEDS: Insulin Glargine,Human Rec. Analog 100 Units/ML 3 ML Pen SUBCUT SCH (21:01)
[2019-05-20] MEDS: oxyCODONE 5 MG Tab PO PRN (01:18)
[2019-05-20] MEDS ORDERED: Heparin Sodium 5,000 Units/ML Vial IVPUSH ONE (02:36)
[2019-05-20] MEDS: Pantoprazole 40 MG Tab.CR PO SCH (08:11)
[2019-05-20] MEDS: Insulin Lispro 100 Unit/ML 3 ML KwikPen SUBCUT SCH ×3 (08:11→17:10)
[2019-05-20] MEDS: Gabapentin 300 MG Cap PO SCH ×3 (08:23→20:17)
[2019-05-20] MEDS: Clopidogrel 75 MG Tab PO SCH (08:24)
[2019-05-20] MEDS: Furosemide 20 MG Tab PO SCH ×2 (08:24→14:49)
[2019-05-20] MEDS: Magnesium Sulfate/Water 2 GM in Premix Bag 1 BAG IV SCH ×3 (08:25→20:17)
[2019-05-20] MEDS: Metoprolol Succinate 50 MG Tab.ER PO SCH (08:26)
[2019-05-20] MEDS: Lactobacillus Rhamnosus GG (Probiotic) Cap PO SCH ×2 (08:30→20:17)
[2019-05-20] MEDS: atorvaSTATin 20 MG Tab PO SCH (08:31)
[2019-05-20] MEDS: Acetaminophen 500 MG Tab PO SCH ×3 (08:32→20:18)
[2019-05-20] MEDS: VERIFY FENT PATCH TOP SCH ×2 (08:33→20:18)
[2019-05-20] MEDS ORDERED: Non-Formulary Medication 1 Each (Atorvastatin [Lipitor] 40 MG) PO SCH (09:00)
[2019-05-20] MEDS ORDERED: Metoprolol Tartrate 50 MG Tab PO SCH (09:00)
[2019-05-20] MEDS ORDERED: Non-Formulary Medication 1 Each (Sertraline [Zoloft] 50 MG) PO SCH (09:00)
[2019-05-20] MEDS: Aspirin 81 MG Tab.EC PO SCH (09:32)
[2019-05-20] MEDS: Sertraline 50 MG Tab PO SCH (09:33)
--- NOTE | 2019-05-20 10:02 | PCM.PN ---
- General Info Date of Service: 05/20/19 Subjective Update: There were no acute events overnight. Sepsis has resolved. Patient feels well today. No complaints of chest pain or shortness of breath. No nausea. Troponin level does continue to rise and most recently was up to 2. Tolerating heparin infusion with no evidence for bleeding. Several blood cultures are positive for gram-negative rods. Urine culture growing gram-negative rods. Functional Status: Reports: Pain Controlled, Tolerating Diet - Review of Systems General: Denies: Fever, Weakness Pulmonary: Denies: Shortness of Breath Cardiovascular: Denies: Chest Pain - Patient Data Vitals - Most Recent: Last Vital Signs Temp 36.3 C 05/20/19 04:00 Pulse 96 05/20/19 08:26 Resp 18 05/20/19 06:00 BP 159/74 H 05/20/19 08:26 Pulse Ox 92 L 05/20/19 06:00 Weight - Most Recent: 74.028 kg I&O - Last 24 Hours: Intake & Output 05/19/19 05/20/19 05/20/19 22:59 06:59 14:59 Output Total 200 250 Balance -200 -250 Lab Results Last 24 Hours: Laboratory Results - last 24 hr 05/19/19 05/19/19 05/19/19 Range/Units 10:34 10:35 10:35 WBC 7.4 (4.5-11.0) K/uL RBC 4.76 (3.30-5.50) M/uL Hgb 13.7 (12.0-15.0) g/dL Hct 41.7 (36.0-48.0) % MCV 88 (80-98) fL MCH 29 (27-31) pg MCHC 33 (32-36) % Plt Count 203 (150-400) K/uL Neut % (Auto) 94 H (36-66) % Lymph % (Auto) 4 L (24-44) % [place] % (Auto) 2 (2-6) % Eos % (Auto) 0 L (2-4) % Baso % (Auto) 0 (0-1) % APTT (27.0-36.0) sec Sodium 141 (140-148) mmol/L Potassium 2.6 L* (3.6-5.2) mmol/L Chloride 102 (100-108) mmol/L Carbon Dioxide 23 (21-32) mmol/L Anion Gap 18.6 H (5.0-14.0) mmol/L BUN 23 H (7-18) mg/dL Creatinine 1.5 H (0.6-1.0) mg/dL Est Cr Clr Drug Dosing 21.44 mL/min Estimated GFR (MDRD) 33 L (>60) BUN/Creatinine Ratio Not Reportable Glucose 162 H (74-106) mg/dL Lactic Acid (0.4-2.0) mmol/L Calcium 9.5 (8.5-10.1) mg/dL Magnesium (1.8-2.4) mg/dL Total Bilirubin 0.7 (0.2-1.0) mg/dL AST 55 H (15-37) U/L ALT 42 (12-78) U/L Alkaline Phosphatase 129 H (46-116) U/L Creatine Kinase 303 H (26-192) U/L Troponin I (0.000-0.056) ng/mL C-Reactive Protein 6.76 H (0.0-0.3) mg/dL NT-Pro-B Natriuret Pep (5-450) pg/mL Total Protein 8.3 H (6.4-8.2) g/dL Albumin 3.8 (3.4-5.0) g/dL Globulin 4.5 H (2.3-3.5) g/dL Albumin/Globulin Ratio 0.8 L (1.2-2.2) Procalcitonin 8.27 H* ng/mL Urine Color (YELLOW) Urine Appearance (CLEAR) Urine pH (5.0-8.0) Ur Specific [place] (1.008-1.030) Urine Protein (NEGATIVE) mg/dL Urine Glucose (UA) (NEGATIVE) mg/dL Urine Ketones (NEGATIVE) mg/dL Urine Occult Blood (NEGATIVE) Urine Nitrite (NEGATIVE) Urine Bilirubin (NEGATIVE) Urine Urobilinogen (0.2-1.0) EU/dL Ur Leukocyte Esterase (NEGATIVE) Urine RBC (0-5) Urine WBC (0-5) Ur Epithelial Cells Amorphous Sediment Urine Bacteria Urine Mucus 05/19/19 05/19/19 05/19/19 Range/Units 10:35 10:35 10:58 WBC (4.5-11.0) K/uL RBC (3.30-5.50) M/uL Hgb (12.0-15.0) g/dL Hct (36.0-48.0) % MCV (80-98) fL MCH (27-31) pg MCHC (32-36) % Plt Count (150-400) K/uL Neut % (Auto) (36-66) % Lymph % (Auto) (24-44) % Sumner % (Auto) (2-6) % Eos % (Auto) (2-4) % Baso % (Auto) (0-1) % APTT (27.0-36.0) sec Sodium (140-148) mmol/L Potassium (3.6-5.2) mmol/L Chloride (100-108) mmol/L Carbon Dioxide (21-32) mmol/L Anion Gap (5.0-14.0) mmol/L BUN (7-18) mg/dL Creatinine (0.6-1.0) mg/dL Est Cr Clr Drug Dosing mL/min Estimated GFR (MDRD) (>60) BUN/Creatinine Ratio Glucose (74-106) mg/dL Lactic Acid 2.4 H (0.4-2.0) mmol/L Calcium (8.5-10.1) mg/dL Magnesium (1.8-2.4) mg/dL Total Bilirubin (0.2-1.0) mg/dL AST (15-37) U/L ALT (12-78) U/L Alkaline Phosphatase (46-116) U/L Creatine Kinase (26-192) U/L Troponin I 1.004 H* (0.000-0.056) ng/mL C-Reactive Protein (0.0-0.3) mg/dL NT-Pro-B Natriuret Pep (5-450) pg/mL Total Protein (6.4-8.2) g/dL Albumin (3.4-5.0) g/dL Globulin (2.3-3.5) g/dL Albumin/Globulin Ratio (1.2-2.2) Procalcitonin ng/mL Urine Color Yellow (YELLOW) Urine Appearance Cloudy A (CLEAR) Urine pH 6.0 (5.0-8.0) Ur Specific [place] 1.025 (1.008-1.030) Urine Protein >=300 H (NEGATIVE) mg/dL Urine Glucose (UA) Negative (NEGATIVE) mg/dL Urine Ketones Negative (NEGATIVE) mg/dL Urine Occult Blood Moderate H (NEGATIVE) Urine Nitrite Positive H (NEGATIVE) Urine Bilirubin Negative (NEGATIVE) Urine Urobilinogen 0.2 (0.2-1.0) EU/dL Ur Leukocyte Esterase Negative (NEGATIVE) Urine RBC 5-10 H (0-5) Urine WBC 0-5 (0-5) Ur Epithelial Cells Rare Amorphous Sediment Not seen Urine Bacteria Many Urine Mucus Not seen 05/19/19 05/19/19 05/19/19 Range/Units 11:37 14:44 15:42 WBC (4.5-11.0) K/uL RBC (3.30-5.50) M/uL Hgb (12.0-15.0) g/dL Hct (36.0-48.0) % MCV (80-98) fL MCH (27-31) pg MCHC (32-36) % Plt Count (150-400) K/uL Neut % (Auto) (36-66) % Lymph % (Auto) (24-44) % Sumner % (Auto) (2-6) % Eos % (Auto) (2-4) % Baso % (Auto) (0-1) % APTT 23.6 L (27.0-36.0) sec Sodium (140-148) mmol/L Potassium (3.6-5.2) mmol/L Chloride (100-108) mmol/L Carbon Dioxide (21-32) mmol/L Anion Gap (5.0-14.0) mmol/L BUN (7-18) mg/dL Creatinine (0.6-1.0) mg/dL Est Cr Clr Drug Dosing mL/min Estimated GFR (MDRD) (>60) BUN/Creatinine Ratio Glucose (74-106) mg/dL Lactic Acid (0.4-2.0) mmol/L Calcium (8.5-10.1) mg/dL Magnesium (1.8-2.4) mg/dL Total Bilirubin (0.2-1.0) mg/dL AST (15-37) U/L ALT (12-78) U/L Alkaline Phosphatase (46-116) U/L Creatine Kinase (26-192) U/L Troponin I 1.635 H* (0.000-0.056) ng/mL C-Reactive Protein (0.0-0.3) mg/dL NT-Pro-B Natriuret Pep 845 H (5-450) pg/mL Total Protein (6.4-8.2) g/dL Albumin (3.4-5.0) g/dL Globulin (2.3-3.5) g/dL Albumin/Globulin Ratio (1.2-2.2) Procalcitonin ng/mL Urine Color (YELLOW) Urine Appearance (CLEAR) Urine pH (5.0-8.0) Ur Specific [place] (1.008-1.030) Urine Protein (NEGATIVE) mg/dL Urine Glucose (UA) (NEGATIVE) mg/dL Urine Ketones (NEGATIVE) mg/dL Urine Occult Blood (NEGATIVE) Urine Nitrite (NEGATIVE) Urine Bilirubin (NEGATIVE) Urine Urobilinogen (0.2-1.0) EU/dL Ur Leukocyte Esterase (NEGATIVE) Urine RBC (0-5) Urine WBC (0-5) Ur Epithelial Cells Amorphous Sediment Urine Bacteria Urine Mucus 05/19/19 05/19/19 05/19/19 Range/Units 15:42 19:42 22:00 WBC (4.5-11.0) K/uL RBC (3.30-5.50) M/uL Hgb (12.0-15.0) g/dL Hct (36.0-48.0) % MCV (80-98) fL MCH (27-31) pg MCHC (32-36) % Plt Count (150-400) K/uL Neut % (Auto) (36-66) % Lymph % (Auto) (24-44) % [place] % (Auto) (2-6) % Eos % (Auto) (2-4) % Baso % (Auto) (0-1) % APTT 112.7 H* (27.0-36.0) sec Sodium (140-148) mmol/L Potassium 3.7 (3.6-5.2) mmol/L Chloride (100-108) mmol/L Carbon Dioxide (21-32) mmol/L Anion Gap (5.0-14.0) mmol/L BUN (7-18) mg/dL Creatinine (0.6-1.0) mg/dL Est Cr Clr Drug Dosing mL/min Estimated GFR (MDRD) (>60) BUN/Creatinine Ratio Glucose (74-106) mg/dL Lactic Acid 2.4 H (0.4-2.0) mmol/L Calcium (8.5-10.1) mg/dL Magnesium (1.8-2.4) mg/dL Total Bilirubin (0.2-1.0) mg/dL AST (15-37) U/L ALT (12-78) U/L Alkaline Phosphatase (46-116) U/L Creatine Kinase (26-192) U/L Troponin I 1.721 H* (0.000-0.056) ng/mL C-Reactive Protein (0.0-0.3) mg/dL NT-Pro-B Natriuret Pep (5-450) pg/mL Total Protein (6.4-8.2) g/dL Albumin (3.4-5.0) g/dL Globulin (2.3-3.5) g/dL Albumin/Globulin Ratio (1.2-2.2) Procalcitonin ng/mL Urine Color (YELLOW) Urine Appearance (CLEAR) Urine pH (5.0-8.0) Ur Specific [place] (1.008-1.030) Urine Protein (NEGATIVE) mg/dL Urine Glucose (UA) (NEGATIVE) mg/dL Urine Ketones (NEGATIVE) mg/dL Urine Occult Blood (NEGATIVE) Urine Nitrite (NEGATIVE) Urine Bilirubin (NEGATIVE) Urine Urobilinogen (0.2-1.0) EU/dL Ur Leukocyte Esterase (NEGATIVE) Urine RBC (0-5) Urine WBC (0-5) Ur Epithelial Cells Amorphous Sediment Urine Bacteria Urine Mucus 05/20/19 05/20/19 05/20/19 Range/Units 02:00 07:12 07:12 WBC 12.0 H (4.5-11.0) K/uL RBC 4.15 (3.30-5.50) M/uL Hgb 11.9 L (12.0-15.0) g/dL Hct 37.1 (36.0-48.0) % MCV 89 (80-98) fL MCH 29 (27-31) pg MCHC 32 (32-36) % Plt Count 160 (150-400) K/uL Neut % (Auto) (36-66) % Lymph % (Auto) (24-44) % [place] % (Auto) (2-6) % Eos % (Auto) (2-4) % Baso % (Auto) (0-1) % APTT 46.2 H (27.0-36.0) sec Sodium 142 (140-148) mmol/L Potassium 3.6 (3.6-5.2) mmol/L Chloride 105 (100-108) mmol/L Carbon Dioxide 26 (21-32) mmol/L Anion Gap 11.5 (5.0-14.0) mmol/L BUN 16 (7-18) mg/dL Creatinine 1.1 H (0.6-1.0) mg/dL Est Cr Clr Drug Dosing 29.24 mL/min Estimated GFR (MDRD) 47 L (>60) BUN/Creatinine Ratio Glucose 119 H (74-106) mg/dL Lactic Acid (0.4-2.0) mmol/L Calcium 8.9 (8.5-10.1) mg/dL Magnesium 1.5 L (1.8-2.4) mg/dL Total Bilirubin (0.2-1.0) mg/dL AST (15-37) U/L ALT (12-78) U/L Alkaline Phosphatase (46-116) U/L Creatine Kinase (26-192) U/L Troponin I (0.000-0.056) ng/mL C-Reactive Protein (0.0-0.3) mg/dL NT-Pro-B Natriuret Pep (5-450) pg/mL Total Protein (6.4-8.2) g/dL Albumin (3.4-5.0) g/dL Globulin (2.3-3.5) g/dL Albumin/Globulin Ratio (1.2-2.2) Procalcitonin ng/mL Urine Color (YELLOW) Urine Appearance (CLEAR) Urine pH (5.0-8.0) Ur Specific [place] (1.008-1.030) Urine Protein (NEGATIVE) mg/dL Urine Glucose (UA) (NEGATIVE) mg/dL Urine Ketones (NEGATIVE) mg/dL Urine Occult Blood (NEGATIVE) Urine Nitrite (NEGATIVE) Urine Bilirubin (NEGATIVE) Urine Urobilinogen (0.2-1.0) EU/dL Ur Leukocyte Esterase (NEGATIVE) Urine RBC (0-5) Urine WBC (0-5) Ur Epithelial Cells Amorphous Sediment Urine Bacteria Urine Mucus 05/20/19 05/20/19 05/20/19 Range/Units 07:12 07:12 07:30 WBC (4.5-11.0) K/uL RBC (3.30-5.50) M/uL Hgb (12.0-15.0) g/dL Hct (36.0-48.0) % MCV (80-98) fL MCH (27-31) pg MCHC (32-36) % Plt Count (150-400) K/uL Neut % (Auto) (36-66) % Lymph % (Auto) (24-44) % [place] % (Auto) (2-6) % Eos % (Auto) (2-4) % Baso % (Auto) (0-1) % APTT 48.9 H (27.0-36.0) sec Sodium (140-148) mmol/L Potassium (3.6-5.2) mmol/L Chloride (100-108) mmol/L Carbon Dioxide (21-32) mmol/L Anion Gap (5.0-14.0) mmol/L BUN (7-18) mg/dL Creatinine (0.6-1.0) mg/dL Est Cr Clr Drug Dosing mL/min Estimated GFR (MDRD) (>60) BUN/Creatinine Ratio Glucose (74-106) mg/dL Lactic Acid 1.4 (0.4-2.0) mmol/L Calcium (8.5-10.1) mg/dL Magnesium (1.8-2.4) mg/dL Total Bilirubin (0.2-1.0) mg/dL AST (15-37) U/L ALT (12-78) U/L Alkaline Phosphatase (46-116) U/L Creatine Kinase (26-192) U/L Troponin I 2.070 H* (0.000-0.056) ng/mL C-Reactive Protein (0.0-0.3) mg/dL NT-Pro-B Natriuret Pep (5-450) pg/mL Total Protein (6.4-8.2) g/dL Albumin (3.4-5.0) g/dL Globulin (2.3-3.5) g/dL Albumin/Globulin Ratio (1.2-2.2) Procalcitonin ng/mL Urine Color (YELLOW) Urine Appearance (CLEAR) Urine pH (5.0-8.0) Ur Specific [place] (1.008-1.030) Urine Protein (NEGATIVE) mg/dL Urine Glucose (UA) (NEGATIVE) mg/dL Urine Ketones (NEGATIVE) mg/dL Urine Occult Blood (NEGATIVE) Urine Nitrite (NEGATIVE) Urine Bilirubin (NEGATIVE) Urine Urobilinogen (0.2-1.0) EU/dL Ur Leukocyte Esterase (NEGATIVE) Urine RBC (0-5) Urine WBC (0-5) Ur Epithelial Cells Amorphous Sediment Urine Bacteria Urine Mucus Dioni Results Last 24 Hours: Microbiology 05/19/19 10:42 Aerobic Blood Culture - Preliminary Blood - Venous - Iv Start Anaerobic Blood Culture - Preliminary Gram Negative Rods 05/19/19 11:09 Urine Culture - Preliminary Urine, Clean Catch 05/19/19 10:35 Anaerobic Blood Culture - Preliminary Blood - Arm, Right 05/19/19 10:50 Influenza Type A Antigen Screen - Final Nasal Aspirate, Unspecified NEGATIVE INFLUENZA A VIRUS AG REFERENCE RANGE: NEGATIVE Influenza Type B Antigen Screen - Final NEGATIVE INFLUENZA B VIRUS AG REFERENCE RANGE: NEGATIVE Med Orders - Current: Current Medications Acetaminophen (Tylenol Extra Strength) 1,000 mg PO TID [facility] Last Admin: 05/20/19 08:32 Dose: 1,000 mg Acetaminophen (Tylenol) 650 mg PO Q4H PRN PRN Reason: Pain (Mild 1-3)/fever Albuterol (Proventil Neb Soln) 2.5 mg NEB Q4H PRN PRN Reason: Shortness Of Breath/wheezing Aspirin (Halfprin) 81 mg PO DAILY [facility] Last Admin: 05/20/19 09:32 Dose: 81 mg Atorvastatin Calcium (Lipitor) 40 mg PO DAILY [facility] Last Admin: 05/20/19 08:31 Dose: 40 mg Clopidogrel Bisulfate (Plavix) 75 mg PO DAILY [facility] Last Admin: 05/20/19 08:24 Dose: 75 mg Fentanyl (Duragesic) 50 mcg TRDERM Q72H [facility] Last Admin: 05/19/19 15:59 Dose: 50 mcg Furosemide (Lasix) 20 mg PO BIDDIURETIC [facility] Last Admin: 05/20/19 08:24 Dose: 20 mg Gabapentin (Neurontin) 900 mg PO BEDTIME [facility] Last Admin: 05/19/19 21:00 Dose: 900 mg Gabapentin (Neurontin) 600 mg PO BID@0800,1400 [facility] Last Admin: 05/20/19 08:23 Dose: 600 mg Ceftriaxone Sodium 1 gm/ (Sodium Chloride) 50 mls @ 100 mls/hr IV Q24H [facility] Heparin Sodium/Dextrose (Heparin 25,000 Units In D5w 500 Ml) 25,000 units in 500 mls @ 17.767 mls/hr IV TITRATE OBDULIA; Protocol Last Titration: 05/20/19 07:58 Dose: 15 units/kg/hr, 22.208 mls/hr Magnesium Sulfate 2 gm/ Premix 50 mls @ 25 mls/hr IV Q6H [facility] Stop: 05/20/19 21:59 Last Admin: 05/20/19 08:25 Dose: 25 mls/hr Insulin Glargine (Lantus Solostar) 31 units SUBCUT BEDTIME [facility] Last Admin: 05/19/19 21:01 Dose: 31 units Insulin Human Lispro (Humalog) 5 unit SUBCUT TIDAC [facility] Last Admin: 05/20/19 08:11 Dose: 5 units Lactobacillus Rhamnosus (Culturelle) 1 cap PO BID [facility] Last Admin: 05/20/19 08:30 Dose: 1 cap Lorazepam (Ativan) 0.5 mg IVPUSH Q4H PRN PRN Reason: Nausea/Vomiting Melatonin (Melatonin) 9 mg PO BEDTIME PRN PRN Reason: sleep Metoprolol Succinate (Toprol Xl) 50 mg PO DAILY [facility] Last Admin: 05/20/19 08:26 Dose: 50 mg Verify Fent Patch 0 each TOP BID [facility] Last Admin: 05/20/19 08:33 Dose: Not Given Ondansetron HCl (Zofran Odt) 4 mg PO Q6H PRN PRN Reason: Nausea able to take PO Ondansetron HCl (Zofran) 4 mg IV Q6H PRN PRN Reason: Nausea/Vomiting Oxycodone HCl (Oxycodone) 5 mg PO Q4H PRN PRN Reason: Pain Last Admin: 05/20/19 01:18 Dose: 5 mg Pantoprazole Sodium (Protonix) 40 mg PO ACBREAKFAST [facility] Last Admin: 05/20/19 08:11 Dose: 40 mg Senna/Docusate Sodium (Senna Plus) 1 tab PO BID PRN PRN Reason: Constipation Sertraline HCl (Zoloft) 50 mg PO DAILY [facility] Last Admin: 05/20/19 09:33 Dose: 50 mg Sodium Chloride (Saline Flush) 10 ml FLUSH ASDIRECTED PRN PRN Reason: Keep Vein Open Last Admin: 05/19/19 10:47 Dose: 10 ml Tizanidine HCl (Zanaflex) 4 mg PO TID PRN PRN Reason: Spasms Discontinued Medications Clopidogrel Bisulfate (Plavix) 75 mg PO ONETIME ONE Stop: 05/19/19 13:42 Last Admin: 05/19/19 13:51 Dose: 75 mg Heparin Sodium (Porcine) (Heparin Sodium) 4,000 units IVPUSH .BOLUS ONE Stop: 05/19/19 15:01 Last Admin: 05/19/19 16:33 Dose: 4,000 units Heparin Sodium (Porcine) (Heparin Sodium) 1,000 units IVPUSH ONETIME ONE Stop: 05/20/19 02:37 Last Admin: 05/20/19 02:56 Dose: 1,000 units Lactated Ringer's (Ringers, Lactated) 1,000 mls @ 999 mls/hr IV ASDIRECTED [facility] Last Admin: 05/19/19 10:46 Dose: 999 mls/hr Ceftriaxone Sodium 1 gm/ (Sodium Chloride) 50 mls @ 100 mls/hr IV ONETIME ONE Stop: 05/19/19 11:44 Last Admin: 05/19/19 11:33 Dose: 100 mls/hr Sodium Chloride (Normal Saline) 1,000 mls @ 100 mls/hr IV ASDIRECTED [facility] Last Admin: 05/19/19 13:51 Dose: 100 mls/hr Potassium Chloride 20 meq/Lidocaine HCl 2 ml/ Sodium Chloride 112 mls @ 56 mls/ hr IV ONETIME ONE Stop: 05/19/19 17:29 Last Admin: 05/19/19 15:45 Dose: 56 mls/hr Potassium Chloride (Klor-Con M20) 40 meq PO ONETIME ONE Stop: 05/19/19 11:39 Last Admin: 05/19/19 11:54 Dose: 40 meq - Exam Quality Assessment: Supplemental Oxygen General: Alert, Oriented, Cooperative, No Acute Distress Lungs: Clear to Auscultation, Normal Respiratory Effort Cardiovascular: Regular Rate, Regular Rhythm GI/Abdominal Exam: Soft, Non-Tender, No Distention Extremities: No Pedal Edema. No: Increased Warmth Skin: Warm, Dry Psy/Mental Status: Alert, Normal Affect - Problem List & Annotations (1) Acute cystitis without hematuria SNOMED Code(s): 34178792 Code(s): N30.00 - ACUTE CYSTITIS WITHOUT HEMATURIA Status: Acute Current Visit: Yes (2) Sepsis SNOMED Code(s): 56875897 Code(s): A41.9 - SEPSIS, UNSPECIFIED ORGANISM Status: Acute Current Visit : Yes Qualifiers: Sepsis type: sepsis due to unspecified organism Sepsis acute organ dysfunction status: with acute organ dysfunction Severe sepsis acute organ dysfunction type: acute respiratory failure Acute respiratory failure type: with hypoxia Severe sepsis shock status: without septic shock Qualified Code (s): A41.9 - Sepsis, unspecified organism; R65.20 - Severe sepsis without septic shock; J96.01 - Acute respiratory failure with hypoxia (3) NSTEMI (non-ST elevated myocardial infarction) SNOMED Code(s): 92013478 Code(s): I21.4 - NON-ST ELEVATION (NSTEMI) MYOCARDIAL INFARCTION Status: Acute Current Visit: Yes (4) Hypokalemia SNOMED Code(s): 76654831 Code(s): E87.6 - HYPOKALEMIA Status: Acute Current Visit: Yes (5) CKD (chronic kidney disease), stage III SNOMED Code(s): 159220793 Code(s): N18.3 - CHRONIC KIDNEY DISEASE, STAGE 3 (MODERATE) Status: Chronic Current Visit: Yes (6) Chronic back pain SNOMED Code(s): 771831283 Code(s): M54.9 - DORSALGIA, UNSPECIFIED; G89.29 - OTHER CHRONIC PAIN Status : Chronic Current Visit: Yes Qualifiers: Back pain location: low back pain Back pain laterality: bilateral Sciatica presence: unspecified whether sciatica present Qualified Code(s): M54.5 - Low back pain; G89.29 - Other chronic pain - Problem List Review Problem List Initiated/Reviewed/Updated: Yes - My Orders Last 24 Hours: My Active Orders 05/19/19 13:50 Resuscitation Status Routine 05/19/19 14:44 Patient Status [ADT] Routine Blood Glucose Check, Bedside [RC] QIDACANDBED Cardiac Monitoring [RC] CONTINUOUS Communication Order [RC] PRN Communication Order [RC] PRN Diabetes Education [RC] Click to Edit Intake and Output [RC] QSHIFT Notify Provider Vital Signs [RC] ASDIRECTED Notify Provider [RC] PRN Oxygen Therapy [RC] PRN Pulse Oximetry [RC] CONTINUOUS RT Aerosol Therapy [RC] ASDIRECTED Up With Assistance [RC] ASDIRECTED VTE/DVT Education [RC] Per Unit Routine Vital Signs [RC] Q2H Acetaminophen [Tylenol Extra Strength] 1,000 mg PO TID Acetaminophen [Tylenol] 650 mg PO Q4H PRN Albuterol [Proventil Neb Soln] 2.5 mg NEB Q4H PRN Docusate Sodium/Sennosides [Senna Plus] 1 tab PO BID PRN LORazepam [Ativan] 0.5 mg IVPUSH Q4H PRN Melatonin 9 mg PO BEDTIME PRN Ondansetron [Zofran ODT] 4 mg PO Q6H PRN Ondansetron [Zofran] 4 mg IV Q6H PRN oxyCODONE 5 mg PO Q4H PRN tiZANidine [Zanaflex] 4 mg PO TID PRN 05/19/19 15:05 Heparin Sodium/D5W [Heparin 25,000 Units in D5W 500 ML] 25,000 units in 500 ml IV TITRATE 05/19/19 15:30 Gabapentin [Neurontin] 600 mg PO BID@0800,1400 05/19/19 16:00 Insulin Lispro [HumaLOG] 5 unit SUBCUT TIDAC Non-Formulary Medication [NF Drug] 0 each TOP BID fentaNYL [Duragesic] 50 mcg TRDERM Q72H 05/19/19 21:00 Gabapentin [Neurontin] 900 mg PO BEDTIME Insulin Glarg,Human.Rec.Analog [LantUS Solostar] 31 units SUBCUT BEDTIME Lactobacillus Rhamnosus GG [Culturelle] 1 cap PO BID 05/19/19 23:59 Communication Order [RC] ASDIRECTED 05/19/19 Dinner Consistent Carbohydrate Diet [DIET] 05/20/19 07:30 Pantoprazole [ProTONIX] 40 mg PO ACBREAKFAST 05/20/19 08:00 Furosemide [Lasix] 20 mg PO BIDDIURETIC Magnesium Sulfate/Water [Magnesium Sulfate in Water Premix] 2 gm Premix Bag 1 bag IV Q6H 05/20/19 09:00 Aspirin [Halfprin] 81 mg PO DAILY Clopidogrel [Plavix] 75 mg PO DAILY Metoprolol Succinate [Toprol XL] 50 mg PO DAILY Sertraline [Zoloft] 50 mg PO DAILY atorvaSTATin [Lipitor] 40 mg PO DAILY 05/20/19 12:00 PTT,PARTIAL THROMBOPLSTIN TIME [COAG] Routine TROPONIN I [CHEM] Timed cefTRIAXone [Rocephin] 1 gm Sodium Chloride 0.9% [Normal Saline] 50 ml IV Q24H 05/21/19 05:00 BASIC METABOLIC PANEL,BMP [CHEM] Timed CBC W/O DIFF,HEMOGRAM [HEME] Timed (1) TROPONIN I [CHEM] Timed - Plan Plan:: ASSESSMENT AND PLAN - Acute cystitis without hematuria and with sepsis - sepsis has resolved and clinically she is doing very well. Multiple blood cultures with gram-negative rods and urine culture with gram-negative rods. Lactic acid level normalized. -Continue ceftriaxone -Saline lock IV -Follow-up cultures Non-ST segment myocardial infarction - no symptoms and clinically doing well but troponin level continues to rise and was up to 2 most recently. Tolerating current medical treatment. -Continue aspirin -Clopidogrel daily -Heparin infusion until tomorrow morning -Serial troponin levels -Titrate medical management as indicated Hypokalemia - potassium level improving with supplementation and magnesium supplementation. Stage III chronic kidney disease - Creatinine slightly improved since admission. Chronic back pain - Stable at this time. -Continue fentanyl patch and as needed oxycodone Maintenance issues - - DVT prophylaxis - Heparin - GI prophylaxis - PPI - Nutrition - Low sodium CODE STATUS - DNR/DNI Disposition - I would anticipate discharge home, potentially with home care after the hospital stay Primary care physician - Usman Coker M.D.
[2019-05-20] MEDS: cefTRIAXone 1 GM in Sodium Chloride 0.9% 50 ML IV SCH (11:44)
[2019-05-20] MEDS: Heparin Sodium/D5W 25,000 UNITS/500 ML BAG IV SCH (15:01)
[2019-05-20] MEDS: Insulin Glargine,Human Rec. Analog 100 Units/ML 3 ML Pen SUBCUT SCH (20:18)
[2019-05-20] MEDS ORDERED: Metoprolol Tartrate 25 MG Tab PO ONE (22:20)
[2019-05-21] MEDS ORDERED: Heparin Sodium 5,000 Units/ML Vial IVPUSH STA (06:13)
[2019-05-21] MEDS: Insulin Lispro 100 Unit/ML 3 ML KwikPen SUBCUT SCH ×3 (07:05→17:12)
[2019-05-21] MEDS: Acetaminophen 325 MG Tab PO PRN (07:30)
[2019-05-21] MEDS: Gabapentin 300 MG Cap PO SCH ×3 (07:31→20:00)
[2019-05-21] MEDS: Furosemide 20 MG Tab PO SCH ×2 (07:31→14:48)
[2019-05-21] MEDS: Pantoprazole 40 MG Tab.CR PO SCH (07:31)
[2019-05-21] MEDS: atorvaSTATin 20 MG Tab PO SCH (08:46)
[2019-05-21] MEDS: Aspirin 81 MG Tab.EC PO SCH (08:46)
[2019-05-21] MEDS: Clopidogrel 75 MG Tab PO SCH (08:47)
[2019-05-21] MEDS: Lactobacillus Rhamnosus GG (Probiotic) Cap PO SCH ×2 (08:47→20:00)
[2019-05-21] MEDS: Metoprolol Succinate 50 MG Tab.ER PO SCH (08:47)
[2019-05-21] MEDS: Sertraline 50 MG Tab PO SCH (08:47)
[2019-05-21] MEDS: VERIFY FENT PATCH TOP SCH (08:48)
[2019-05-21] MEDS: Acetaminophen 500 MG Tab PO SCH ×3 (08:48→20:00)
--- NOTE | 2019-05-21 09:52 | PCM.PN ---
- General Info Date of Service: 05/21/19 Subjective Update: Ms. Muniz is been stable over the last 24 hours, troponin level is decreased from its peak this morning. She denies any symptoms of chest pain or pressure. No significant temperature elevations white blood cell count is within normal range. - Review of Systems General: Reports: Weakness. Denies: Fever, Chills Pulmonary: Reports: No Symptoms Cardiovascular: Reports: No Symptoms Gastrointestinal: Reports: No Symptoms - Patient Data Vitals - Most Recent: Last Vital Signs Temp 100.2 F 05/21/19 08:00 Pulse 114 H 05/21/19 08:47 Resp 20 05/21/19 08:00 BP 141/81 H 05/21/19 08:47 Pulse Ox 96 05/21/19 08:00 Weight - Most Recent: 163 lb 3.274 oz I&O - Last 24 Hours: Intake & Output 05/20/19 05/21/19 05/21/19 22:59 06:59 14:59 Intake Total 1145 341 Output Total 200 Balance 945 341 Lab Results Last 24 Hours: Laboratory Results - last 24 hr 05/20/19 05/20/19 05/20/19 Range/Units 11:45 11:45 15:58 WBC (4.5-11.0) K/uL RBC (3.30-5.50) M/uL Hgb (12.0-15.0) g/dL Hct (36.0-48.0) % MCV (80-98) fL MCH (27-31) pg MCHC (32-36) % Plt Count (150-400) K/uL APTT 55.1 H 53.5 H (27.0-36.0) sec Sodium (140-148) mmol/L Potassium (3.6-5.2) mmol/L Chloride (100-108) mmol/L Carbon Dioxide (21-32) mmol/L Anion Gap (5.0-14.0) mmol/L BUN (7-18) mg/dL Creatinine (0.6-1.0) mg/dL Est Cr Clr Drug Dosing mL/min Estimated GFR (MDRD) (>60) Glucose (74-106) mg/dL Calcium (8.5-10.1) mg/dL Troponin I 2.295 H* (0.000-0.056) ng/mL 05/21/19 05/21/19 05/21/19 Range/Units 05:43 05:43 05:43 WBC 9.6 (4.5-11.0) K/uL RBC 4.03 (3.30-5.50) M/uL Hgb 11.6 L (12.0-15.0) g/dL Hct 36.6 (36.0-48.0) % MCV 91 (80-98) fL MCH 29 (27-31) pg MCHC 32 (32-36) % Plt Count 147 L (150-400) K/uL APTT 49.5 H (27.0-36.0) sec Sodium 140 (140-148) mmol/L Potassium 3.6 (3.6-5.2) mmol/L Chloride 104 (100-108) mmol/L Carbon Dioxide 27 (21-32) mmol/L Anion Gap 9.0 (5.0-14.0) mmol/L BUN 11 (7-18) mg/dL Creatinine 1.1 H (0.6-1.0) mg/dL Est Cr Clr Drug Dosing 29.24 mL/min Estimated GFR (MDRD) 47 L (>60) Glucose 117 H (74-106) mg/dL Calcium 8.6 (8.5-10.1) mg/dL Troponin I 1.480 H* (0.000-0.056) ng/mL Dioni Results Last 24 Hours: Microbiology 05/19/19 10:42 Aerobic Blood Culture - Preliminary Blood - Venous - Iv Start Anaerobic Blood Culture - Preliminary Gram Negative Rods 05/19/19 10:35 Aerobic Blood Culture - Preliminary Blood - Arm, Right NO GROWTH AFTER 1 DAY Anaerobic Blood Culture - Preliminary 05/19/19 11:09 Urine Culture - Final Urine, Clean Catch Escherichia Coli Med Orders - Current: Current Medications Acetaminophen (Tylenol Extra Strength) 1,000 mg PO TID [facility] Last Admin: 05/21/19 08:48 Dose: Not Given Acetaminophen (Tylenol) 650 mg PO Q4H PRN PRN Reason: Pain (Mild 1-3)/fever Last Admin: 05/21/19 07:30 Dose: 650 mg Albuterol (Proventil Neb Soln) 2.5 mg NEB Q4H PRN PRN Reason: Shortness Of Breath/wheezing Aspirin (Halfprin) 81 mg PO DAILY [facility] Last Admin: 05/21/19 08:46 Dose: 81 mg Atorvastatin Calcium (Lipitor) 40 mg PO DAILY [facility] Last Admin: 05/21/19 08:46 Dose: 40 mg Clopidogrel Bisulfate (Plavix) 75 mg PO DAILY [facility] Last Admin: 05/21/19 08:47 Dose: 75 mg Fentanyl (Duragesic) 50 mcg TRDERM Q72H [facility] Last Admin: 05/19/19 15:59 Dose: 50 mcg Furosemide (Lasix) 20 mg PO BIDDIURETIC [facility] Last Admin: 05/21/19 07:31 Dose: 20 mg Gabapentin (Neurontin) 900 mg PO BEDTIME [facility] Last Admin: 05/20/19 20:17 Dose: 900 mg Gabapentin (Neurontin) 600 mg PO BID@0800,1400 [facility] Last Admin: 05/21/19 07:31 Dose: 600 mg Ceftriaxone Sodium 1 gm/ (Sodium Chloride) 50 mls @ 100 mls/hr IV Q24H [facility] Last Admin: 05/20/19 11:44 Dose: 100 mls/hr Insulin Glargine (Lantus Solostar) 31 units SUBCUT BEDTIME [facility] Last Admin: 05/20/19 20:18 Dose: 31 units Insulin Human Lispro (Humalog) 5 unit SUBCUT TIDAC [facility] Last Admin: 05/21/19 07:05 Dose: 5 units Lactobacillus Rhamnosus (Culturelle) 1 cap PO BID [facility] Last Admin: 05/21/19 08:47 Dose: 1 cap Lorazepam (Ativan) 0.5 mg IVPUSH Q4H PRN PRN Reason: Nausea/Vomiting Melatonin (Melatonin) 9 mg PO BEDTIME PRN PRN Reason: sleep Metoprolol Succinate (Toprol Xl) 50 mg PO DAILY [facility] Last Admin: 05/21/19 08:47 Dose: 50 mg Verify Fent Patch 0 each TOP BID [facility] Last Admin: 05/21/19 08:48 Dose: Not Given Ondansetron HCl (Zofran Odt) 4 mg PO Q6H PRN PRN Reason: Nausea able to take PO Ondansetron HCl (Zofran) 4 mg IV Q6H PRN PRN Reason: Nausea/Vomiting Oxycodone HCl (Oxycodone) 5 mg PO Q4H PRN PRN Reason: Pain Last Admin: 05/20/19 01:18 Dose: 5 mg Pantoprazole Sodium (Protonix) 40 mg PO ACBREAKFAST [facility] Last Admin: 05/21/19 07:31 Dose: 40 mg Senna/Docusate Sodium (Senna Plus) 1 tab PO BID PRN PRN Reason: Constipation Sertraline HCl (Zoloft) 50 mg PO DAILY [facility] Last Admin: 05/21/19 08:47 Dose: 50 mg Sodium Chloride (Saline Flush) 10 ml FLUSH ASDIRECTED PRN PRN Reason: Keep Vein Open Last Admin: 05/19/19 10:47 Dose: 10 ml Tizanidine HCl (Zanaflex) 4 mg PO TID PRN PRN Reason: Spasms Discontinued Medications Clopidogrel Bisulfate (Plavix) 75 mg PO ONETIME ONE Stop: 05/19/19 13:42 Last Admin: 05/19/19 13:51 Dose: 75 mg Heparin Sodium (Porcine) (Heparin Sodium) 4,000 units IVPUSH .BOLUS ONE Stop: 05/19/19 15:01 Last Admin: 05/19/19 16:33 Dose: 4,000 units Heparin Sodium (Porcine) (Heparin Sodium) 1,000 units IVPUSH ONETIME ONE Stop: 05/20/19 02:37 Last Admin: 05/20/19 02:56 Dose: 1,000 units Heparin Sodium (Porcine) (Heparin Sodium) 1,000 units IVPUSH .BOLUS STA Stop: 05/21/19 06:14 Last Admin: 05/21/19 06:30 Dose: 1,000 units Lactated Ringer's (Ringers, Lactated) 1,000 mls @ 999 mls/hr IV ASDIRECTED [facility] Last Admin: 05/19/19 10:46 Dose: 999 mls/hr Ceftriaxone Sodium 1 gm/ (Sodium Chloride) 50 mls @ 100 mls/hr IV ONETIME ONE Stop: 05/19/19 11:44 Last Admin: 05/19/19 11:33 Dose: 100 mls/hr Sodium Chloride (Normal Saline) 1,000 mls @ 100 mls/hr IV ASDIRECTED [facility] Last Admin: 05/19/19 13:51 Dose: 100 mls/hr Heparin Sodium/Dextrose (Heparin 25,000 Units In D5w 500 Ml) 25,000 units in 500 mls @ 17.767 mls/hr IV TITRATE [facility]; Protocol Stop: 05/21/19 09:00 Last Titration: 05/21/19 06:15 Dose: 17 units/kg/hr, 25.17 mls/hr Potassium Chloride 20 meq/Lidocaine HCl 2 ml/ Sodium Chloride 112 mls @ 56 mls/ hr IV ONETIME ONE Stop: 05/19/19 17:29 Last Admin: 05/19/19 15:45 Dose: 56 mls/hr Magnesium Sulfate 2 gm/ Premix 50 mls @ 25 mls/hr IV Q6H [facility] Stop: 05/20/19 21:59 Last Admin: 05/20/19 20:17 Dose: 25 mls/hr Metoprolol Tartrate (Lopressor) 25 mg PO ONETIME ONE Stop: 05/20/19 22:21 Last Admin: 05/20/19 22:40 Dose: 25 mg Potassium Chloride (Klor-Con M20) 40 meq PO ONETIME ONE Stop: 05/19/19 11:39 Last Admin: 05/19/19 11:54 Dose: 40 meq - Exam Quality Assessment: Supplemental Oxygen, DVT Prophylaxis General: Alert, Oriented, Cooperative, Mild Distress Lungs: Clear to Auscultation, Normal Respiratory Effort Cardiovascular: Regular Rhythm, No Murmurs, Tachycardia GI/Abdominal Exam: Soft, Non-Tender, No Organomegaly, No Distention Extremities: Non-Tender, No Pedal Edema - Problem List Review Problem List Initiated/Reviewed/Updated: Yes - My Orders Last 24 Hours: My Active Orders 05/21/19 09:42 Echo Comp wo Cont [US] Urgent 05/21/19 09:43 Consult to Physical Therapy [PT Evaluation and Treatment] [CONS] Routine - Plan Plan:: ASSESSMENT AND PLAN - Acute cystitis without hematuria and with sepsis - sepsis has resolved and clinically she is doing very well. White cultures and urine culture growing Escherichia coli sensitive to ceftriaxone -Continue ceftriaxone -Saline lock IV -Follow-up cultures Non-ST segment myocardial infarction - no symptoms and clinically doing well. Continues to refuse aggressive interventions with transfer to cardiology. -Continue aspirin -Clopidogrel daily -Discontinue IV heparin -She has a history of allergies to KAREN inhibitor's and ARB's Hypokalemia - resolved following supplementation Stage III chronic kidney disease - Creatinine slightly improved since admission. Chronic back pain - Stable at this time. -Continue fentanyl patch and as needed oxycodone Palliative care-does not want aggressive interventions and would like to be managed with medications Maintenance issues - - DVT prophylaxis - Lovenox - GI prophylaxis - PPI - Nutrition - Low sodium CODE STATUS - DNR/DNI Disposition - I would anticipate discharge home, potentially with home care after the hospital stay Primary care physician - Usman Issa [employer] HELPER
[2019-05-21] MEDS: Enoxaparin 30 MG/0.3 ML Syringe SUBCUT SCH (11:05)
[2019-05-21] MEDS: cefTRIAXone 1 GM in Sodium Chloride 0.9% 50 ML IV SCH (11:11)
[2019-05-21] MEDS: Insulin Glargine,Human Rec. Analog 100 Units/ML 3 ML Pen SUBCUT SCH (20:03)
[2019-05-22] MEDS: VERIFY FENT PATCH TOP SCH ×3 (00:42→21:48)
[2019-05-22] MEDS: Sertraline 50 MG Tab PO SCH (08:02)
[2019-05-22] MEDS: Acetaminophen 500 MG Tab PO SCH ×3 (08:02→20:58)
[2019-05-22] MEDS: atorvaSTATin 20 MG Tab PO SCH (08:02)
[2019-05-22] MEDS: Clopidogrel 75 MG Tab PO SCH (08:03)
[2019-05-22] MEDS: Pantoprazole 40 MG Tab.CR PO SCH (08:03)
[2019-05-22] MEDS: Aspirin 81 MG Tab.EC PO SCH (08:03)
[2019-05-22] MEDS: Gabapentin 300 MG Cap PO SCH ×3 (08:03→20:54)
[2019-05-22] MEDS: Lactobacillus Rhamnosus GG (Probiotic) Cap PO SCH ×2 (08:03→20:54)
[2019-05-22] MEDS: Furosemide 20 MG Tab PO SCH ×2 (08:03→14:35)
[2019-05-22] MEDS: Metoprolol Succinate 50 MG Tab.ER PO SCH (08:04)
[2019-05-22] MEDS: Enoxaparin 30 MG/0.3 ML Syringe SUBCUT SCH (08:04)
[2019-05-22] MEDS: Insulin Lispro 100 Unit/ML 3 ML KwikPen SUBCUT SCH ×3 (08:09→18:55)
--- NOTE | 2019-05-22 10:45 | PCM.PN ---
- General Info Date of Service: 05/22/19 Subjective Update: Ms. Muniz did experience temperature elevation yesterday, she has been afebrile since then. No confusion noted today and she does feel somewhat stronger. Functional Status: Reports: Tolerating Diet, Urinating. Denies: Ambulating - Review of Systems General: Reports: Weakness. Denies: Fever, Chills Pulmonary: Reports: No Symptoms Cardiovascular: Reports: No Symptoms Gastrointestinal: Reports: No Symptoms Genitourinary: Reports: No Symptoms - Patient Data Vitals - Most Recent: Last Vital Signs Temp 97.7 F 05/22/19 08:00 Pulse 88 05/22/19 08:04 Resp 17 05/22/19 10:00 BP 161/82 H 05/22/19 10:00 Pulse Ox 95 05/22/19 10:00 Weight - Most Recent: 163 lb Dioni Results Last 24 Hours: Microbiology 05/19/19 10:42 Aerobic Blood Culture - Final Blood - Venous - Iv Start Escherichia Coli Anaerobic Blood Culture - Final Escherichia Coli. 05/19/19 10:35 Aerobic Blood Culture - Preliminary Blood - Arm, Right NO GROWTH AFTER 2 DAYS Anaerobic Blood Culture - Final Escherichia Coli 05/19/19 11:09 Urine Culture - Final Urine, Clean Catch Escherichia Coli Med Orders - Current: Current Medications Acetaminophen (Tylenol Extra Strength) 1,000 mg PO TID [facility] Last Admin: 05/22/19 08:02 Dose: 1,000 mg Acetaminophen (Tylenol) 650 mg PO Q4H PRN PRN Reason: Pain (Mild 1-3)/fever Last Admin: 05/21/19 07:30 Dose: 650 mg Albuterol (Proventil Neb Soln) 2.5 mg NEB Q4H PRN PRN Reason: Shortness Of Breath/wheezing Aspirin (Halfprin) 81 mg PO DAILY [facility] Last Admin: 05/22/19 08:03 Dose: 81 mg Atorvastatin Calcium (Lipitor) 40 mg PO DAILY [facility] Last Admin: 05/22/19 08:02 Dose: 40 mg Clopidogrel Bisulfate (Plavix) 75 mg PO DAILY [facility] Last Admin: 05/22/19 08:03 Dose: 75 mg Enoxaparin Sodium (Lovenox) 30 mg SUBCUT DAILY [facility] Last Admin: 05/22/19 08:04 Dose: 30 mg Fentanyl (Duragesic) 50 mcg TRDERM Q72H [facility] Last Admin: 05/19/19 15:59 Dose: 50 mcg Furosemide (Lasix) 20 mg PO BIDDIURETIC [facility] Last Admin: 05/22/19 08:03 Dose: 20 mg Gabapentin (Neurontin) 900 mg PO BEDTIME [facility] Last Admin: 05/21/19 20:00 Dose: 900 mg Gabapentin (Neurontin) 600 mg PO BID@0800,1400 [facility] Last Admin: 05/22/19 08:03 Dose: 600 mg Ceftriaxone Sodium 1 gm/ (Sodium Chloride) 50 mls @ 100 mls/hr IV Q24H [facility] Last Admin: 05/21/19 11:11 Dose: 100 mls/hr Insulin Glargine (Lantus Solostar) 31 units SUBCUT BEDTIME [facility] Last Admin: 05/21/19 20:03 Dose: 31 units Insulin Human Lispro (Humalog) 5 unit SUBCUT TIDAC [facility] Last Admin: 05/22/19 08:09 Dose: 5 units Lactobacillus Rhamnosus (Culturelle) 1 cap PO BID [facility] Last Admin: 05/22/19 08:03 Dose: 1 cap Lorazepam (Ativan) 0.5 mg IVPUSH Q4H PRN PRN Reason: Nausea/Vomiting Melatonin (Melatonin) 9 mg PO BEDTIME PRN PRN Reason: sleep Metoprolol Succinate (Toprol Xl) 50 mg PO DAILY [facility] Last Admin: 05/22/19 08:04 Dose: 50 mg Verify Fent Patch 0 each TOP BID [facility] Last Admin: 05/22/19 08:05 Dose: Not Given Ondansetron HCl (Zofran Odt) 4 mg PO Q6H PRN PRN Reason: Nausea able to take PO Ondansetron HCl (Zofran) 4 mg IV Q6H PRN PRN Reason: Nausea/Vomiting Oxycodone HCl (Oxycodone) 5 mg PO Q4H PRN PRN Reason: Pain Last Admin: 05/20/19 01:18 Dose: 5 mg Pantoprazole Sodium (Protonix) 40 mg PO ACBREAKFAST [facility] Last Admin: 05/22/19 08:03 Dose: 40 mg Senna/Docusate Sodium (Senna Plus) 1 tab PO BID PRN PRN Reason: Constipation Sertraline HCl (Zoloft) 50 mg PO DAILY [facility] Last Admin: 05/22/19 08:02 Dose: 50 mg Sodium Chloride (Saline Flush) 10 ml FLUSH ASDIRECTED PRN PRN Reason: Keep Vein Open Last Admin: 05/19/19 10:47 Dose: 10 ml Tizanidine HCl (Zanaflex) 4 mg PO TID PRN PRN Reason: Spasms Discontinued Medications Clopidogrel Bisulfate (Plavix) 75 mg PO ONETIME ONE Stop: 05/19/19 13:42 Last Admin: 05/19/19 13:51 Dose: 75 mg Heparin Sodium (Porcine) (Heparin Sodium) 4,000 units IVPUSH .BOLUS ONE Stop: 05/19/19 15:01 Last Admin: 05/19/19 16:33 Dose: 4,000 units Heparin Sodium (Porcine) (Heparin Sodium) 1,000 units IVPUSH ONETIME ONE Stop: 05/20/19 02:37 Last Admin: 05/20/19 02:56 Dose: 1,000 units Heparin Sodium (Porcine) (Heparin Sodium) 1,000 units IVPUSH .BOLUS STA Stop: 05/21/19 06:14 Last Admin: 05/21/19 06:30 Dose: 1,000 units Lactated Ringer's (Ringers, Lactated) 1,000 mls @ 999 mls/hr IV ASDIRECTED [facility] Last Admin: 05/19/19 10:46 Dose: 999 mls/hr Ceftriaxone Sodium 1 gm/ (Sodium Chloride) 50 mls @ 100 mls/hr IV ONETIME ONE Stop: 05/19/19 11:44 Last Admin: 05/19/19 11:33 Dose: 100 mls/hr Sodium Chloride (Normal Saline) 1,000 mls @ 100 mls/hr IV ASDIRECTED [facility] Last Admin: 05/19/19 13:51 Dose: 100 mls/hr Heparin Sodium/Dextrose (Heparin 25,000 Units In D5w 500 Ml) 25,000 units in 500 mls @ 17.767 mls/hr IV TITRATE [facility]; Protocol Stop: 05/21/19 09:00 Last Titration: 05/21/19 06:15 Dose: 17 units/kg/hr, 25.17 mls/hr Potassium Chloride 20 meq/Lidocaine HCl 2 ml/ Sodium Chloride 112 mls @ 56 mls/ hr IV ONETIME ONE Stop: 05/19/19 17:29 Last Admin: 05/19/19 15:45 Dose: 56 mls/hr Magnesium Sulfate 2 gm/ Premix 50 mls @ 25 mls/hr IV Q6H [facility] Stop: 05/20/19 21:59 Last Admin: 05/20/19 20:17 Dose: 25 mls/hr Metoprolol Tartrate (Lopressor) 25 mg PO ONETIME ONE Stop: 05/20/19 22:21 Last Admin: 05/20/19 22:40 Dose: 25 mg Potassium Chloride (Klor-Con M20) 40 meq PO ONETIME ONE Stop: 05/19/19 11:39 Last Admin: 05/19/19 11:54 Dose: 40 meq - Exam Quality Assessment: DVT Prophylaxis General: Alert, Oriented, Cooperative, No Acute Distress Lungs: Clear to Auscultation, Normal Respiratory Effort Cardiovascular: Regular Rate, Regular Rhythm, No Murmurs GI/Abdominal Exam: Soft, Non-Tender, No Organomegaly, No Distention - Problem List Review Problem List Initiated/Reviewed/Updated: Yes - My Orders Last 24 Hours: My Active Orders 05/21/19 10:00 Enoxaparin [Lovenox] 30 mg SUBCUT DAILY 05/22/19 10:42 Patient Status [ADT] Routine - Plan Plan:: ASSESSMENT AND PLAN - Acute cystitis without hematuria and with sepsis - sepsis has resolved and clinically she is doing very well. Blood cultures and urine culture growing Escherichia coli sensitive to ceftriaxone -Continue ceftriaxone -Saline lock IV Non-ST segment myocardial infarction - no symptoms and clinically doing well. Continues to refuse aggressive interventions with transfer to cardiology. -Continue aspirin -Clopidogrel daily -Discontinue IV heparin -She has a history of allergies to KAREN inhibitor's and ARB's Hypokalemia - resolved following supplementation Stage III chronic kidney disease - Creatinine slightly improved since admission. Chronic back pain - Stable at this time. -Continue fentanyl patch and as needed oxycodone Palliative care-does not want aggressive interventions and would like to be managed with medications Maintenance issues - - DVT prophylaxis - Lovenox - GI prophylaxis - PPI - Nutrition - Low sodium CODE STATUS - DNR/DNI Disposition - I would anticipate discharge home, potentially with home care after the hospital stay Primary care physician - Usman Issa [employer]
[2019-05-22] MEDS: cefTRIAXone 1 GM in Sodium Chloride 0.9% 50 ML IV SCH (11:45)
[2019-05-22] MEDS: fentaNYL 50 MCG/HR Transdermal Patch TRDERM SCH (16:28)
[2019-05-22] MEDS: Acetaminophen 325 MG Tab PO PRN (20:56)
[2019-05-22] MEDS: Insulin Glargine,Human Rec. Analog 100 Units/ML 3 ML Pen SUBCUT SCH (20:58)
[2019-05-23] MEDS: oxyCODONE 5 MG Tab PO PRN (03:03)
[2019-05-23] MEDS: Insulin Lispro 100 Unit/ML 3 ML KwikPen SUBCUT SCH ×2 (07:59→11:49)
[2019-05-23] MEDS: Pantoprazole 40 MG Tab.CR PO SCH (08:00)
[2019-05-23] MEDS: Furosemide 20 MG Tab PO SCH (08:00)
[2019-05-23] MEDS: Gabapentin 300 MG Cap PO SCH (08:01)
[2019-05-23] MEDS: Enoxaparin 30 MG/0.3 ML Syringe SUBCUT SCH (09:46)
[2019-05-23] MEDS: Lactobacillus Rhamnosus GG (Probiotic) Cap PO SCH (09:46)
[2019-05-23] MEDS: Sertraline 50 MG Tab PO SCH (09:46)
[2019-05-23] MEDS: Aspirin 81 MG Tab.EC PO SCH (09:47)
[2019-05-23] MEDS: atorvaSTATin 20 MG Tab PO SCH (09:49)
[2019-05-23] MEDS: VERIFY FENT PATCH TOP SCH (09:50)
[2019-05-23] MEDS: Metoprolol Succinate 50 MG Tab.ER PO SCH (09:51)
[2019-05-23] MEDS: Clopidogrel 75 MG Tab PO SCH (09:51)
[2019-05-23] MEDS: Acetaminophen 500 MG Tab PO SCH (09:52)
[2019-05-23] MEDS: cefTRIAXone 1 GM in Sodium Chloride 0.9% 50 ML IV SCH (11:50)
--- NOTE | 2019-05-23 13:33 | PCM.DCSUM1 ---
Discharge Summary - Hospital Course Brief History: Ms. Muniz is an 83-year-old woman who was admitted through the emergency department with weakness and fever secondary to urinary tract infection and underlying non-ST segment elevation myocardial infarction. - Discharge Data Discharge Date: 05/23/19 Discharge Disposition: Home, W Home Health Agency 06 Condition: Fair - Referral to Home Health Date of Face to Face Encounter: 05/23/19 Reason for Homebound Status: Weakness Primary Care Physician: Usman Issa NP Skilled Need: Home PT and OT - Discharge Diagnosis/Problem(s) (1) Palliative care status SNOMED Code(s): 792553616 ICD Code: Z51.5 - ENCOUNTER FOR PALLIATIVE CARE Status: Acute Current Visit: Yes (2) Acute cystitis without hematuria SNOMED Code(s): 02128846 ICD Code: N30.00 - ACUTE CYSTITIS WITHOUT HEMATURIA Status: Acute Current Visit: Yes (3) Sepsis SNOMED Code(s): 40538116 ICD Code: A41.9 - SEPSIS, UNSPECIFIED ORGANISM Status: Acute Current Visit: Yes Qualifiers: Sepsis type: sepsis due to unspecified organism Sepsis acute organ dysfunction status: with acute organ dysfunction Severe sepsis acute organ dysfunction type: acute respiratory failure Acute respiratory failure type: with hypoxia Severe sepsis shock status: without septic shock Qualified Code (s): A41.9 - Sepsis, unspecified organism; R65.20 - Severe sepsis without septic shock; J96.01 - Acute respiratory failure with hypoxia (4) NSTEMI (non-ST elevated myocardial infarction) SNOMED Code(s): 17976153 ICD Code: I21.4 - NON-ST ELEVATION (NSTEMI) MYOCARDIAL INFARCTION Status: Acute Current Visit: Yes (5) CKD (chronic kidney disease), stage III SNOMED Code(s): 419640741 ICD Code: N18.3 - CHRONIC KIDNEY DISEASE, STAGE 3 (MODERATE) Status: Chronic Current Visit: Yes - Patient Summary/Data Consults: Consultations 05/21/19 09:43 Consult to Physical Therapy [PT Evaluation and Treatment] [CONS] Routine Please Evaluate and Treat. PT Reason for Consult: Weakness, s/p sepsis, NE This query below is only for informational purposes and is not editable. Admission Diagnosis/Problem: Acute cystitis without hematuria 05/22/19 10:55 Consult to PICC Team [CONS] Routine Comment: Physician Instructions: Hospital Course: Ms. Muniz presented to the emergency room with weakness and fevers. Difficulties started on Tuesday, 5 days prior to admission. During the afternoon she felt like she had a hole in the middle of her body and that her legs were very weak. Around that time per daughter noted she was slurring her speech. The patient felt tired so she took a nap. When she woke up her speech was a little better but still slurred. As the evening progressed her speech improved. The next day seemed a little better but then that night she had a fall and spent the entire night on the floor. Since that time she has had a progressive weakness. She has not had additional difficulties with speech since that time. Weakness is generalized. No complaints of pain other than her chronic back pain which is stable. She does not feel short of breath. She has not had any chest pain. Over the past couple of days she has developed subjective fevers with episodes of being hot and sweaty as well as cold and shaky. Appetite has been decreased and she has not been eating very well. She has had some mild nausea. Workup in the emergency room suggested sepsis with a urinary tract infection as well as a suspected non-ST elevation myocardial infarction with a troponin level of 1. She also had significant hypokalemia. Transfer to a tertiary care center was recommended for cardiology evaluation. The patient and her daughter both felt that aggressive and invasive intervention was not appropriate based on her previously expressed wishes. They were interested and admission for medical management of the myocardial infarction as well as management of her infection but did not want to transfer for aggressive intervention. She was admitted to the intensive care unit for further management. On admission she was given IV fluids for management of her sepsis, blood and urine cultures had been obtained in the emergency department. Following day troponin level was further elevated at 2.4, further discussion was entertained with the patient and daughter and she remained consistent in her wish to not undergo further aggressive intervention or evaluation. By the time of discharge troponin level had decreased but had not yet normalized. She was continued on aspirin therapy, beta doug, and statin. Plavix once daily was added to her regimen, she was not placed on an KAREN inhibitor or ARB because of history of allergies to both medications. Urine culture and blood cultures grew out Escherichia coli sensitive to the ceftriaxone. Because of her sepsis and positive blood culture she will be treated with a 10 day course of IV antibiotic therapy with the ceftriaxone. She completed 4 days of therapy by the time of discharge, plan will be for an additional 6 days of IV antibiotic therapy. A PICC line was placed prior to discharge to facilitate ongoing IV antibiotic therapy. Her weakness improved significantly during hospitalization and she was seen daily by physical therapy. By the time of discharge she was able to ambulate and transfer with minimal assistance. Activity will be as tolerated and she will resume her usual diet. Followup appointment will be scheduled with her primary care provider within one week. - Patient Instructions Diet: Diabetic Diet Activity: As Tolerated Other/Special Instructions: Please schedule follow-up appointment with primary care provider within one week. Please arrange for home care with home physical therapy and occupational therapy after discharge. Please arrange for home antibiotic therapy with ceftriaxone 1 g IV every 24 hours for an additional 6 doses. - Discharge Plan *PRESCRIPTION DRUG MONITORING PROGRAM REVIEWED*: Not Applicable *COPY OF PRESCRIPTION DRUG MONITORING REPORT IN PATIENT GAMA: Not Applicable Prescriptions/Med Rec: cefTRIAXone [Rocephin] 1 gm IV Q24H #6 vial Clopidogrel [Plavix] 75 mg PO DAILY #30 tablet Lactobacillus Rhamnosus GG [Culturelle] 1 cap PO BID #60 cap Home Medications: Home Meds Acetaminophen [Tylenol Extra Strength] 1,000 mg PO Q6H PRN 05/30/14 [History] Albuterol Sulfate [Proair Hfa] 2 puff IH QID PRN 05/30/14 [History] Aspirin [Ecotrin EC] 81 mg PO DAILY 05/30/14 [History] Cholecalciferol (Vitamin D3) [Vitamin D3] 2,000 unit PO DAILY 05/30/14 [History] Gabapentin [Neurontin] 600 mg PO BID 05/30/14 [History] Insulin Detemir [Levemir Flexpen] 30 units SQ BEDTIME 05/30/14 [History] Multivitamin [Multi-Vitamin Daily] 1 tab PO DAILY 05/30/14 [History] Sertraline [Zoloft] 50 mg PO TID 05/30/14 [History] atorvaSTATin [Lipitor] 40 mg PO DAILY 05/30/14 [History] fentaNYL [Duragesic] 50 mcg TRDERM Q72H 05/30/14 [History] oxyCODONE 5 mg PO Q4H PRN 05/30/14 [History] tiZANidine [Zanaflex] 4 mg PO TID PRN 05/30/14 [History] Gabapentin [Neurontin] 900 mg PO BEDTIME 01/05/16 [History] Insulin Aspart [Novolog Flexpen] 5 unit SQ ASDIRECTED 01/05/16 [History] Furosemide [Lasix] 20 mg PO BID 08/12/17 [History] Omeprazole Magnesium [Prilosec Otc] 20 mg PO DAILY 08/12/17 [History] Metoprolol Succinate 50 mg PO DAILY 05/19/19 [History] Clopidogrel [Plavix] 75 mg PO DAILY #30 tablet 05/23/19 [Rx] Lactobacillus Rhamnosus GG [Culturelle] 1 cap PO BID #60 cap 05/23/19 [Rx] cefTRIAXone [Rocephin] 1 gm IV Q24H #6 vial 05/23/19 [Rx] Referrals: Usman Issa, RN CASE [facility] [Primary Care Provider] - 05/30/19 1:00 pm (Please arrive 15 minutes early to register for your appointment.) - Discharge Summary/Plan Comment DC Time >30 min.: No - Patient Data Vitals - Most Recent: Last Vital Signs Temp 96.3 F 05/23/19 08:05 Pulse 93 05/23/19 09:51 Resp 18 05/23/19 08:05 BP 166/76 H 05/23/19 09:51 Pulse Ox 0 L 05/23/19 08:05 Weight - Most Recent: 163 lb I&O - Last 24 hours: Intake & Output 05/22/19 05/23/19 05/23/19 22:59 06:59 14:59 Intake Total 60 Balance 60 MARIO Results - Last 24 hrs: Microbiology 05/19/19 10:35 Aerobic Blood Culture - Preliminary Blood - Arm, Right NO GROWTH AFTER 4 DAYS Anaerobic Blood Culture - Final Escherichia Coli Med Orders - Current: Current Medications Acetaminophen (Tylenol Extra Strength) 1,000 mg PO TID OBDULIA Last Admin: 05/23/19 09:52 Dose: 1,000 mg Acetaminophen (Tylenol) 650 mg PO Q4H PRN PRN Reason: Pain (Mild 1-3)/fever Last Admin: 05/22/19 20:56 Dose: 650 mg Albuterol (Proventil Neb Soln) 2.5 mg NEB Q4H PRN PRN Reason: Shortness Of Breath/wheezing Aspirin (Halfprin) 81 mg PO DAILY OBDULIA Last Admin: 05/23/19 09:47 Dose: 81 mg Atorvastatin Calcium (Lipitor) 40 mg PO DAILY [facility] Last Admin: 05/23/19 09:49 Dose: 40 mg Clopidogrel Bisulfate (Plavix) 75 mg PO DAILY [facility] Last Admin: 05/23/19 09:51 Dose: 75 mg Enoxaparin Sodium (Lovenox) 30 mg SUBCUT DAILY [facility] Last Admin: 05/23/19 09:46 Dose: 30 mg Fentanyl (Duragesic) 50 mcg TRDERM Q72H [facility] Last Admin: 05/22/19 16:28 Dose: 50 mcg Furosemide (Lasix) 20 mg PO BIDDIURETIC [facility] Last Admin: 05/23/19 08:00 Dose: 20 mg Gabapentin (Neurontin) 900 mg PO BEDTIME [facility] Last Admin: 05/22/19 20:54 Dose: 900 mg Gabapentin (Neurontin) 600 mg PO BID@0800,1400 [facility] Last Admin: 05/23/19 08:01 Dose: 600 mg Ceftriaxone Sodium 1 gm/ (Sodium Chloride) 50 mls @ 100 mls/hr IV Q24H [facility] Last Admin: 05/23/19 11:50 Dose: 100 mls/hr Insulin Glargine (Lantus Solostar) 31 units SUBCUT BEDTIME [facility] Last Admin: 05/22/19 20:58 Dose: 31 units Insulin Human Lispro (Humalog) 5 unit SUBCUT TIDAC [facility] Last Admin: 05/23/19 11:49 Dose: 5 units Lactobacillus Rhamnosus (Culturelle) 1 cap PO BID [facility] Last Admin: 05/23/19 09:46 Dose: 1 cap Lorazepam (Ativan) 0.5 mg IVPUSH Q4H PRN PRN Reason: Nausea/Vomiting Melatonin (Melatonin) 9 mg PO BEDTIME PRN PRN Reason: sleep Metoprolol Succinate (Toprol Xl) 50 mg PO DAILY [facility] Last Admin: 05/23/19 09:51 Dose: 50 mg Verify Fent Patch 0 each TOP BID [facility] Last Admin: 05/23/19 09:50 Dose: Not Given Ondansetron HCl (Zofran Odt) 4 mg PO Q6H PRN PRN Reason: Nausea able to take PO Ondansetron HCl (Zofran) 4 mg IV Q6H PRN PRN Reason: Nausea/Vomiting Oxycodone HCl (Oxycodone) 5 mg PO Q4H PRN PRN Reason: Pain Last Admin: 05/23/19 03:03 Dose: 5 mg Pantoprazole Sodium (Protonix) 40 mg PO ACBREAKFAST [facility] Last Admin: 05/23/19 08:00 Dose: 40 mg Senna/Docusate Sodium (Senna Plus) 1 tab PO BID PRN PRN Reason: Constipation Sertraline HCl (Zoloft) 50 mg PO DAILY [facility] Last Admin: 05/23/19 09:46 Dose: 50 mg Sodium Chloride (Saline Flush) 10 ml FLUSH ASDIRECTED PRN PRN Reason: Keep Vein Open Last Admin: 05/19/19 10:47 Dose: 10 ml Tizanidine HCl (Zanaflex) 4 mg PO TID PRN PRN Reason: Spasms Discontinued Medications Clopidogrel Bisulfate (Plavix) 75 mg PO ONETIME ONE Stop: 05/19/19 13:42 Last Admin: 05/19/19 13:51 Dose: 75 mg Heparin Sodium (Porcine) (Heparin Sodium) 4,000 units IVPUSH .BOLUS ONE Stop: 05/19/19 15:01 Last Admin: 05/19/19 16:33 Dose: 4,000 units Heparin Sodium (Porcine) (Heparin Sodium) 1,000 units IVPUSH ONETIME ONE Stop: 05/20/19 02:37 Last Admin: 05/20/19 02:56 Dose: 1,000 units Heparin Sodium (Porcine) (Heparin Sodium) 1,000 units IVPUSH .BOLUS STA Stop: 05/21/19 06:14 Last Admin: 05/21/19 06:30 Dose: 1,000 units Lactated Ringer's (Ringers, Lactated) 1,000 mls @ 999 mls/hr IV ASDIRECTED [facility] Last Admin: 05/19/19 10:46 Dose: 999 mls/hr Ceftriaxone Sodium 1 gm/ (Sodium Chloride) 50 mls @ 100 mls/hr IV ONETIME ONE Stop: 05/19/19 11:44 Last Admin: 05/19/19 11:33 Dose: 100 mls/hr Sodium Chloride (Normal Saline) 1,000 mls @ 100 mls/hr IV ASDIRECTED [facility] Last Admin: 05/19/19 13:51 Dose: 100 mls/hr Heparin Sodium/Dextrose (Heparin 25,000 Units In D5w 500 Ml) 25,000 units in 500 mls @ 17.767 mls/hr IV TITRATE OBDULIA; Protocol Stop: 05/21/19 09:00 Last Titration: 05/21/19 06:15 Dose: 17 units/kg/hr, 25.17 mls/hr Potassium Chloride 20 meq/Lidocaine HCl 2 ml/ Sodium Chloride 112 mls @ 56 mls/ hr IV ONETIME ONE Stop: 05/19/19 17:29 Last Admin: 05/19/19 15:45 Dose: 56 mls/hr Magnesium Sulfate 2 gm/ Premix 50 mls @ 25 mls/hr IV Q6H OBDULIA Stop: 05/20/19 21:59 Last Admin: 05/20/19 20:17 Dose: 25 mls/hr Metoprolol Tartrate (Lopressor) 25 mg PO ONETIME ONE Stop: 05/20/19 22:21 Last Admin: 05/20/19 22:40 Dose: 25 mg Potassium Chloride (Klor-Con M20) 40 meq PO ONETIME ONE Stop: 05/19/19 11:39 Last Admin: 05/19/19 11:54 Dose: 40 meq - Exam Quality Assessment: Reports: DVT Prophylaxis General: Reports: Alert, Oriented, Cooperative, No Acute Distress Lungs: Reports: Clear to Auscultation, Normal Respiratory Effort Cardiovascular: Reports: Regular Rate, Regular Rhythm, No Murmurs GI/Abdominal Exam: Soft, Non-Tender, No Organomegaly, No Distention Extremities: Non-Tender, No Pedal Edema
[2019-05-23 14:24] VITALS: BP 154/111; PULSE 91
== END 2019-05-23 14:45 | disposition home health service (06) | DRG 871 ==
LOC: JP.ED 09:36 → JP.ICU 13:43 → JP.MS 05-22 15:51
PROVIDERS: ADMIT Internal Medicine; ATTEND Internal Medicine
PROC: 02HV33Z Insertion of Infusion Device into Superior Vena Cava, Percutaneous Approach (ICD-10-PCS; principal; 2019-05-22)
DX: A41.51 Sepsis due to Escherichia coli [E. coli] (principal); R50.9 Fever, unspecified; R53.1 Weakness; R06.02 Shortness of breath; J96.01 Acute respiratory failure with hypoxia; I21.4 Non-ST elevation (NSTEMI) myocardial infarction; N18.9 Chronic kidney disease, unspecified; N30.00 Acute cystitis without hematuria; R65.20 Severe sepsis without septic shock; Z51.5 Encounter for palliative care; F32.9 Major depressive disorder, single episode, unspecified; M79.7 Fibromyalgia; N18.3 Chronic kidney disease, stage 3 (moderate); E87.6 Hypokalemia; Z66 Do not resuscitate; G89.29 Other chronic pain; M54.5 Low back pain; E78.00 Pure hypercholesterolemia, unspecified; I12.9 Hypertensive chronic kidney disease with stage 1 through stage 4 chronic kidney disease, or unspecified chronic kidney disease; E11.22 Type 2 diabetes mellitus with diabetic chronic kidney disease; M19.90 Unspecified osteoarthritis, unspecified site; E11.42 Type 2 diabetes mellitus with diabetic polyneuropathy; W06.XXXA Fall from bed, initial encounter; M81.0 Age-related osteoporosis without current pathological fracture; E66.9 Obesity, unspecified; Z79.899 Other long term (current) drug therapy; Z91.048 Other nonmedicinal substance allergy status; Z86.718 Personal history of other venous thrombosis and embolism; Z88.1 Allergy status to other antibiotic agents; Z88.0 Allergy status to penicillin; Z91.011 Allergy to milk products; Z85.820 Personal history of malignant melanoma of skin; Z88.8 Allergy status to other drugs, medicaments and biological substances; Z88.2 Allergy status to sulfonamides; Z79.82 Long term (current) use of aspirin; Z79.4 Long term (current) use of insulin; Z87.440 Personal history of urinary (tract) infections; Z90.49 Acquired absence of other specified parts of digestive tract; Z98.1 Arthrodesis status; Z68.30 Body mass index [BMI] 30.0-30.9, adult
CPT/HCPCS: 36415; 71045; 80053; 81001; 82550; 83605; 83880; 84145; 84484; 85025; 86140; 87040 ×2; 87077; 87086; 87088; 87186 ×2; 87804 ×2; 93005; 93010; A9270; J0696; J7050; J7120; 70450; 80048; 82962; 83735; 84132; 85027; 85730; 93306; 96361; 96365; 97110-GP; 97162-GP; 97530-GP; 97535-GP; 99283; 99285-25; C1751; J1644; J1650; J1815; J1815-GY; J2001; J3475; J3480; J7030

== ENCOUNTER 2022-01-16 18:45 | Emergency (ER) | payer MEDICARE, BC ==
[2022-01-16] MEDS ORDERED: HYDROmorphone 1 MG/ML Syringe IVPUSH ONE (18:52)
[2022-01-16] MEDS ORDERED: Ondansetron 4 MG/2 ML SDV IVPUSH ONE (18:52)
[2022-01-16] MEDS ORDERED: HYDROmorphone 1 MG/ML Syringe ONE (18:54)
[2022-01-16] MEDS ORDERED: Ondansetron 4 MG/2 ML SDV ONE (18:54)
[2022-01-16 19:18] VITALS: BP 186/94; PULSE 74
[2022-01-16 19:19] LABS: ESTIMATED GFR 39 (>60)
== END 2022-01-16 19:40 ==
LOC: JP.ED 18:45
DX: S72.351A Displaced comminuted fracture of shaft of right femur, initial encounter for closed fracture (principal); I12.9 Hypertensive chronic kidney disease with stage 1 through stage 4 chronic kidney disease, or unspecified chronic kidney disease; E11.42 Type 2 diabetes mellitus with diabetic polyneuropathy; E11.22 Type 2 diabetes mellitus with diabetic chronic kidney disease; N18.30 Chronic kidney disease, stage 3 unspecified; G89.29 Other chronic pain; M54.50 Low back pain, unspecified; E78.00 Pure hypercholesterolemia, unspecified; Z88.0 Allergy status to penicillin; Z91.048 Other nonmedicinal substance allergy status; Z88.1 Allergy status to other antibiotic agents; Z91.011 Allergy to milk products; Z88.2 Allergy status to sulfonamides; Z79.899 Other long term (current) drug therapy; Z20.822 Contact with and (suspected) exposure to COVID-19; Z79.4 Long term (current) use of insulin; W18.30XA Fall on same level, unspecified, initial encounter
CPT/HCPCS: 36415; 51702; 73551; 80053; 81001; 85025; 85610; 85730; 96374; 96375; 99285; J1170; J2405; U0002

== ENCOUNTER 2022-03-15 08:39 | Day surgery (SDC) | payer MEDICARE, BC ==
[~2022-03-15 08:39] MED LIST changes: +Bacitracin Oint 1 GM U/D Packet ONE; +Bupivacaine 0.5% 30 ML SDV ONE; -Bupivacaine 0.5%/EPINEPHrine 1:200,000 50 ML MDV ONE; +Lidocaine 1% with EPINEPHrine 1:100,000 50 ML MDV ONE; +Midazolam 1 MG/ML 2 ML SDV ONE; -Povidone-Iodine 10% Soln 118.25 ML Bottle ONE; +Propofol 200 MG/20 ML SDV ONE; +fentaNYL 100 MCG/2 ML SDV ONE
[2022-03-15] MEDS ORDERED: Dextrose 5%-Lactated Ringers 1,000 ML IV SCH (09:00)
[2022-03-15] MEDS ORDERED: Linezolid 600 MG in Premix Bag 1 BAG IV ONE (10:00)
[2022-03-15 12:46] VITALS: BP 153/74; PULSE 86
== END 2022-03-15 13:03 | disposition home or self-care (01) ==
LOC: JP.SDS 08:39
PROVIDERS: ATTEND Surgery
DX: C44.319 Basal cell carcinoma of skin of other parts of face (principal); I12.9 Hypertensive chronic kidney disease with stage 1 through stage 4 chronic kidney disease, or unspecified chronic kidney disease; E11.22 Type 2 diabetes mellitus with diabetic chronic kidney disease; N18.9 Chronic kidney disease, unspecified; K21.9 Gastro-esophageal reflux disease without esophagitis; I82.409 Acute embolism and thrombosis of unspecified deep veins of unspecified lower extremity; Z88.0 Allergy status to penicillin; Z88.1 Allergy status to other antibiotic agents; Z88.8 Allergy status to other drugs, medicaments and biological substances; Z91.011 Allergy to milk products; Z79.890 Hormone replacement therapy; Z79.899 Other long term (current) drug therapy; Z79.891 Long term (current) use of opiate analgesic; Z86.73 Personal history of transient ischemic attack (TIA), and cerebral infarction without residual deficits
CPT/HCPCS: 11643; 12052; J2020; J2250; J2704; J3010; J3490; J7121

== ENCOUNTER 2022-05-12 07:00 | Inpatient (IN) | payer MEDICARE, BC ==
[2022-05-12] MEDS ORDERED: Lactated Ringers 1,000 ML IV SCH (08:30)
[2022-05-12] MEDS ORDERED: Nozin Nasal Sanitizer NASBOTH ONE (08:30)
[2022-05-12] MEDS ORDERED: Gabapentin 300 MG Cap ONE ×3 (09:00)
[2022-05-12] MEDS ORDERED: Loratadine 10 MG Tab ONE (09:00)
[2022-05-12] MEDS ORDERED: Pantoprazole 40 MG Tab.CR ONE (09:00)
[2022-05-12] MEDS ORDERED: Cholecalciferol (Vitamin D3) 25 MCG Tab ONE (09:00)
[2022-05-12] MEDS ORDERED: Insulin Glargine,Human Rec. Analog 100 Units/ML 3 ML Pen ONE (09:00)
[2022-05-12] MEDS ORDERED: Nozin Nasal Sanitizer ONE (09:00)
[2022-05-12] MEDS ORDERED: atorvaSTATin 20 MG Tab ONE (09:00)
[2022-05-12] MEDS ORDERED: Furosemide 20 MG Tab ONE ×2 (09:00)
[2022-05-12] MEDS ORDERED: Sertraline 50 MG Tab ONE ×2 (09:00)
[2022-05-12] MEDS ORDERED: Metoprolol Succinate 50 MG Tab.ER ONE (09:00)
[2022-05-12] MEDS ORDERED: Lisinopril 5 MG Tab ONE (09:00)
[2022-05-12] MEDS ORDERED: Neostigmine Methylsulfate 1 MG/ML 5 ML Syringe ONE ×2 (09:01→12:40)
[2022-05-12] MEDS ORDERED: Propofol 200 MG/20 ML SDV ONE ×2 (09:01→12:40)
[2022-05-12] MEDS ORDERED: Rocuronium 50 MG/5 ML Vial ONE ×2 (09:01→12:40)
[2022-05-12] MEDS ORDERED: Ondansetron 4 MG/2 ML SDV ONE (09:01)
[2022-05-12] MEDS ORDERED: fentaNYL 250 MCG/5 ML SDV ONE (09:01)
[2022-05-12] MEDS ORDERED: Dexamethasone 4 MG/ML SDV ONE (09:01)
[2022-05-12] MEDS ORDERED: Glycopyrrolate 0.2 MG/ML 5 ML MDV ONE ×2 (09:01→12:40)
[2022-05-12] MEDS ORDERED: Bupivacaine 0.5% 30 ML SDV ONE (10:13)
[2022-05-12] MEDS ORDERED: Labetalol 20 MG/4 ML Syringe ONE (10:43)
[2022-05-12] MEDS ORDERED: Morphine 2 MG/ML SYRINGE ONE ×2 (11:05)
[2022-05-12] MEDS ORDERED: Morphine 2 MG/ML SYRINGE IVPUSH ONE (11:07)
[2022-05-12] MEDS ORDERED: Lactated Ringers 1,000 ML IV ONE ×2 (11:30→15:00)
[2022-05-12] MEDS ORDERED: fentaNYL 50 MCG/HR Transdermal Patch TRDERM ONE (11:30)
[2022-05-12] MEDS ORDERED: Morphine 2 MG/ML SYRINGE IV ONE ×2 (12:05→17:35)
[2022-05-12] MEDS ORDERED: fentaNYL 100 MCG/2 ML SDV ONE (12:40)
[2022-05-12] MEDS ORDERED: Acetaminophen/HYDROcodone 325-5 MG Tab PO ONE (16:45)
[2022-05-12] MEDS ORDERED: Sodium Chloride 0.9% 1,000 ML IV ONE (19:30)
[2022-05-12] MEDS ORDERED: oxyCODONE 5 MG Tab PO ONE (21:30)
[2022-05-12] MEDS ORDERED: HYDROmorphone 0.5 MG/0.5 ML Syringe IVPUSH ONE (21:42)
[2022-05-13] MEDS ORDERED: HYDROmorphone 0.5 MG/0.5 ML Syringe IVPUSH ONE ×2 (01:07→02:27)
[2022-05-13] MEDS ORDERED: oxyCODONE 5 MG Tab PO ONE ×5 (01:41→20:45)
[2022-05-13] MEDS ORDERED: Clopidogrel 75 MG Tab ONE (09:00)
[2022-05-13] MEDS ORDERED: atorvaSTATin 20 MG Tab ONE (09:00)
[2022-05-13] MEDS ORDERED: Sertraline 50 MG Tab ONE ×3 (09:00)
[2022-05-13] MEDS ORDERED: Metoprolol Succinate 50 MG Tab.ER ONE (09:00)
[2022-05-13] MEDS ORDERED: Furosemide 20 MG Tab ONE ×2 (09:00)
[2022-05-13] MEDS ORDERED: Loratadine 10 MG Tab ONE (09:00)
[2022-05-13] MEDS ORDERED: Lisinopril 5 MG Tab ONE (09:00)
[2022-05-13] MEDS ORDERED: tiZANidine 2 MG Tab ONE (09:00)
[2022-05-13] MEDS ORDERED: Pantoprazole 40 MG Tab.CR ONE (09:00)
[2022-05-13] MEDS ORDERED: Gabapentin 300 MG Cap ONE ×4 (09:00)
[2022-05-14] MEDS ORDERED: oxyCODONE 5 MG Tab PO ONE (00:45)
[2022-05-14] MEDS ORDERED: Gabapentin 300 MG Cap ONE ×4 (09:00)
[2022-05-14] MEDS ORDERED: Loratadine 10 MG Tab ONE (09:00)
[2022-05-14] MEDS ORDERED: Clopidogrel 75 MG Tab ONE (09:00)
[2022-05-14] MEDS ORDERED: atorvaSTATin 20 MG Tab ONE (09:00)
[2022-05-14] MEDS ORDERED: Pantoprazole 40 MG Tab.CR ONE (09:00)
[2022-05-14] MEDS ORDERED: tiZANidine 2 MG Tab ONE ×2 (09:00)
[2022-05-14] MEDS ORDERED: Furosemide 20 MG Tab ONE ×2 (09:00)
[2022-05-14] MEDS ORDERED: Sertraline 50 MG Tab ONE ×3 (09:00)
[2022-05-15] MEDS ORDERED: Gabapentin 300 MG Cap ONE (09:00)
[2022-05-15] MEDS ORDERED: Pantoprazole 40 MG Tab.CR ONE (09:00)
[2022-05-15] MEDS ORDERED: Sertraline 50 MG Tab ONE (09:00)
[2022-05-15] MEDS ORDERED: atorvaSTATin 20 MG Tab ONE (09:00)
[2022-05-15] MEDS ORDERED: Furosemide 20 MG Tab ONE ×2 (09:00)
[2022-05-15] MEDS ORDERED: Clopidogrel 75 MG Tab ONE (09:00)
[2022-05-15] MEDS ORDERED: oxyCODONE 5 MG Tab PO ONE (09:00)
[2022-06-08 13:50] LABS: ESTIMATED GFR 49 mL/min (>60)
[2022-06-24 13:48] LABS: ESTIMATED GFR 40 mL/min (>60)
== END 2022-05-15 13:30 | disposition home or self-care (01) | DRG 465 ==
LOC: JP.SDS 07:00 → JP.ZCENSUS 05-13 13:15
PROVIDERS: ADMIT Specialist; ATTEND Specialist
PROC: 0SPC09Z Removal of Liner from Right Knee Joint, Open Approach (ICD-10-PCS; principal; 2022-05-12)
PROC: 0SPC0NZ Removal of Patellofemoral Synthetic Substitute from Right Knee Joint, Open Approach (ICD-10-PCS; 2022-05-12)
PROC: 0SUV09Z Supplement Right Knee Joint, Tibial Surface with Liner, Open Approach (ICD-10-PCS; 2022-05-12)
DX: T84.022A Instability of internal right knee prosthesis, initial encounter (principal); I10 Essential (primary) hypertension; K21.9 Gastro-esophageal reflux disease without esophagitis; E11.9 Type 2 diabetes mellitus without complications; N28.1 Cyst of kidney, acquired; M79.7 Fibromyalgia; M54.9 Dorsalgia, unspecified; Z88.1 Allergy status to other antibiotic agents; Z86.718 Personal history of other venous thrombosis and embolism; Z79.01 Long term (current) use of anticoagulants; Z88.8 Allergy status to other drugs, medicaments and biological substances; Z86.73 Personal history of transient ischemic attack (TIA), and cerebral infarction without residual deficits
CPT/HCPCS: 36415; 73560-26-RT; 73560-RT; 80053; 85027; 97110-GP; 97162-GP; 97165-GO; 97530-GP; 97535-GO; 97535-GP; A9270-GY; C1776; J1100; J1170; J1815-GY; J2270; J2405; J2704; J2710; J3010; J3370; J3490; J7030; J7050; J7120

== ENCOUNTER 2022-09-15 10:06 | Emergency (ER) | payer MEDICARE, BC ==
[2022-09-15 11:26] LABS: CORONAVIRUS COVID-19 NAA NEGATIVE (NEGATIVE)
[2022-09-15 12:07] VITALS: BP 84/31; PULSE 68
== END 2022-09-15 12:05 | disposition home or self-care (01) ==
LOC: JP.ED 10:06
DX: J06.9 Acute upper respiratory infection, unspecified (principal); R05.9 Cough, unspecified; E78.00 Pure hypercholesterolemia, unspecified; E11.40 Type 2 diabetes mellitus with diabetic neuropathy, unspecified; I10 Essential (primary) hypertension; Z91.048 Other nonmedicinal substance allergy status; Z88.1 Allergy status to other antibiotic agents; Z88.0 Allergy status to penicillin; Z88.2 Allergy status to sulfonamides; Z91.011 Allergy to milk products; Z79.899 Other long term (current) drug therapy; Z79.82 Long term (current) use of aspirin; Z79.4 Long term (current) use of insulin; Z90.49 Acquired absence of other specified parts of digestive tract; Z20.822 Contact with and (suspected) exposure to COVID-19
CPT/HCPCS: 0241U; 36415; 80048; 85025; 99284

== ENCOUNTER 2022-11-02 10:17 | Inpatient (IN) | payer MEDICARE, BC ==
[2022-11-02] MEDS ORDERED: Sodium Chloride 0.9% 1,000 ML IV SCH (11:00)
[2022-11-02 11:45] LABS: CORONAVIRUS COVID-19 NAA NEGATIVE (NEGATIVE)
[2022-11-02 11:49] LABS: ESTIMATED GFR 8 mL/min (>60)
[2022-11-02] MEDS ORDERED: 50% Dextrose in Water 50 ML Syringe IVPUSH PRN (12:15)
[2022-11-02] MEDS ORDERED: Glucagon,Human Recombinant 1 MG Vial IM PRN (12:15)
[2022-11-02] MEDS ORDERED: Calcium Gluconate 1 GM in Sodium Chloride 0.9% 100 ML IV SCH (12:30)
[2022-11-02] MEDS ORDERED: Albuterol 0.083% 2.5 MG/3 ML Neb Soln NEB SCH (12:30)
[2022-11-02] MEDS ORDERED: Insulin Regular, Human 100 Units/ML 3 ML Vial IVPUSH ONE (12:30)
[2022-11-02] MEDS ORDERED: 50% Dextrose in Water 50 ML Syringe IVPUSH ONE (12:30)
[2022-11-02] MEDS ORDERED: Levofloxacin/Dextrose 5%-Water 500 MG in Premix Bag 1 BAG IV ONE (12:41)
[2022-11-02] MEDS ORDERED: Ondansetron 4 MG/2 ML SDV IV PRN (14:41)
[2022-11-02] MEDS ORDERED: 50% Dextrose in Water 50 ML Syringe IV PRN (14:41)
[2022-11-02] MEDS ORDERED: Non-Formulary Medication 1 Each (Sertraline [Zoloft] 100 MG Tablet) PO SCH (14:41)
[2022-11-02] MEDS ORDERED: Sodium Chloride 0.9% 10 ML Syringe FLUSH PRN (14:41)
[2022-11-02] MEDS ORDERED: Piperacillin/Tazobactam 3.375 GM in Sodium Chloride 0.9% 50 ML IV SCH (14:41)
[2022-11-02] MEDS ORDERED: Acetaminophen 325 MG Tab PO PRN (14:41)
[2022-11-02] MEDS ORDERED: Albuterol 0.083% 2.5 MG/3 ML Neb Soln NEB PRN (14:41)
[2022-11-02] MEDS ORDERED: oxyCODONE 5 MG Tab PO PRN (14:41)
[2022-11-02] MEDS ORDERED: Non-Formulary Medication 1 Each (Tizanidine [Zanaflex] 4 MG Tablet) PO PRN (14:41)
[2022-11-02] MEDS ORDERED: Glucose Gel 15 GM in 37.5 GM Tube PO PRN (14:41)
[2022-11-02] MEDS ORDERED: Sodium Polystyrene Sulfonate 15 GM/60 ML Susp 60 ML Bot PO ONE ×2 (15:00→20:00)
[2022-11-02] MEDS: Sodium Chloride 0.9% 1,000 ML IV SCH (15:28)
[2022-11-02] MEDS ORDERED: tiZANidine 2 MG Tab PO PRN (15:32)
[2022-11-02] MEDS ORDERED: Piperacillin/Tazobactam/Dext 2.25 GM in Premix Bag 1 BAG IV SCH (16:00)
[2022-11-02] MEDS: Pantoprazole 40 MG Tab.CR PO SCH (16:00)
[2022-11-02] MEDS ORDERED: Meropenem 1 GM in Sodium Chloride 0.9% 100 ML IV SCH (16:15)
[2022-11-02] MEDS: Meropenem 500 MG in Sodium Chloride 0.9% 50 ML IV SCH (17:07)
[2022-11-02] MEDS: Insulin Lispro 100 Unit/ML 3 ML KwikPen SUBCUT SCH ×2 (17:18→21:43)
[2022-11-02] MEDS: Calcium Gluconate 1 GM in Sodium Chloride 0.9% 100 ML IV SCH (20:31)
[2022-11-02] MEDS: Furosemide 20 MG Tab PO SCH (20:37)
[2022-11-02] MEDS: Sertraline 50 MG Tab PO SCH (20:37)
[2022-11-02] MEDS ORDERED: Non-Formulary Medication 1 Each (Gemfibrozil [Gemfibrozil] 600 MG Tablet) PO SCH (21:00)
[2022-11-02] MEDS ORDERED: INSULIN DETEMIR 100 UNIT/ML SQ SCH (21:00)
[2022-11-02] MEDS ORDERED: Insulin Glargine,Human Rec. Analog 100 Units/ML 3 ML Pen SUBCUT SCH (21:00)
[2022-11-02] MEDS ORDERED: Gabapentin 300 MG Cap PO SCH (21:00)
[2022-11-03] MEDS: Calcium Gluconate 1 GM in Sodium Chloride 0.9% 100 ML IV SCH ×2 (01:34→08:35)
[2022-11-03] MEDS: Sodium Chloride 0.9% 1,000 ML IV SCH (04:48)
[2022-11-03] MEDS: Meropenem 500 MG in Sodium Chloride 0.9% 50 ML IV SCH ×2 (04:50→16:34)
[2022-11-03] MEDS ORDERED: Morphine 10 MG/0.5 ML Oral Syringe PO PRN (06:07)
[2022-11-03] MEDS: Pantoprazole 40 MG Tab.CR PO SCH ×2 (08:54→16:06)
[2022-11-03] MEDS: Insulin Lispro 100 Unit/ML 3 ML KwikPen SUBCUT SCH ×3 (08:55→16:32)
[2022-11-03] MEDS ORDERED: fentaNYL 50 MCG/HR Transdermal Patch TRDERM SCH (09:00)
[2022-11-03] MEDS ORDERED: Lisinopril 5 MG Tab PO SCH ×2 (09:00)
[2022-11-03] MEDS ORDERED: Non-Formulary Medication 1 Each (Atorvastatin [Lipitor] 40 MG Tab) PO SCH (09:00)
[2022-11-03] MEDS ORDERED: Clopidogrel 75 MG Tab PO SCH (09:00)
[2022-11-03] MEDS: Aspirin 81 MG Tab.EC PO SCH (10:26)
[2022-11-03] MEDS: Metoprolol Succinate 50 MG Tab.ER PO SCH ×2 (10:26→20:17)
[2022-11-03] MEDS: Furosemide 20 MG Tab PO SCH (10:26)
[2022-11-03] MEDS: Sertraline 50 MG Tab PO SCH ×2 (10:26→13:40)
[2022-11-03] MEDS: Morphine 10 MG/0.5 ML Oral Syringe PO PRN ×2 (17:28→23:52)
[2022-11-03] MEDS: Gabapentin 300 MG Cap PO SCH (18:01)
[2022-11-03] MEDS: LORazepam ORAL Concentrate 1MG/0.5ML U/D BUCCAL PRN (18:19)
[2022-11-03] MEDS: FENTANYL PATCH CHECK TOP SCH (20:27)
[2022-11-03] MEDS ORDERED: Insulin Glargine,Human Rec. Analog 100 Units/ML 3 ML Pen SUBCUT SCH (21:00)
[2022-11-03 23:07] VITALS: BP 117/35; PULSE 102
[2022-11-04] MEDS: Morphine 10 MG/0.5 ML Oral Syringe PO PRN ×5 (06:55→22:37)
[2022-11-04] MEDS: Aspirin 81 MG Tab.EC PO SCH (08:37)
[2022-11-04] MEDS: FENTANYL PATCH CHECK TOP SCH ×2 (08:38→22:01)
[2022-11-04] MEDS: LORazepam ORAL Concentrate 1MG/0.5ML U/D BUCCAL PRN (18:53)
[2022-11-04] MEDS: Metoprolol Succinate 50 MG Tab.ER PO SCH (21:57)
== END 2022-11-05 02:38 | disposition expired | DRG 683 ==
LOC: JP.ED 10:17 → JP.ICU 12:19
PROVIDERS: ADMIT Hospitalist; ATTEND Hospitalist
DX: N17.9 Acute kidney failure, unspecified (principal); A09 Infectious gastroenteritis and colitis, unspecified; E87.20 Acidosis, unspecified; E86.0 Dehydration; E87.5 Hyperkalemia; Z51.5 Encounter for palliative care; E78.00 Pure hypercholesterolemia, unspecified; I12.9 Hypertensive chronic kidney disease with stage 1 through stage 4 chronic kidney disease, or unspecified chronic kidney disease; N18.9 Chronic kidney disease, unspecified; E11.22 Type 2 diabetes mellitus with diabetic chronic kidney disease; E11.42 Type 2 diabetes mellitus with diabetic polyneuropathy; M81.0 Age-related osteoporosis without current pathological fracture; Z88.0 Allergy status to penicillin; Z88.8 Allergy status to other drugs, medicaments and biological substances; Z88.1 Allergy status to other antibiotic agents; Z79.01 Long term (current) use of anticoagulants; Z79.82 Long term (current) use of aspirin; Z79.899 Other long term (current) drug therapy; Z79.4 Long term (current) use of insulin; Z74.01 Bed confinement status; Z98.49 Cataract extraction status, unspecified eye; Z90.49 Acquired absence of other specified parts of digestive tract; Z90.710 Acquired absence of both cervix and uterus
CPT/HCPCS: 0241U; 36415; 36600; 74176; 74176-26; 80048; 80053; 82803; 82947; 83605; 83690; 83735; 84132; 85025; 85027; 94640; 96361; 96365; 96368; 96375; 99223; 99233; 99239; 99285; 99285-25; A9270-GY; J0610; J1815; J1815-GY; J1956; J2185; J2543; J3490; J7030